=== PATIENT | female | born 1955 | race Caucasian/White ===

== ENCOUNTER 2016-12-14 10:47 | Inpatient (IN) | payer BC, MEDICAID ==
[~2016-12-14] VITALS: Ht 157.5 cm; Wt 46.3 kg
[~2016-12-14 10:47] MED LIST: Acetaminophen PO; HYDR-3326 PO
[2016-12-14] MEDS ORDERED: IV NORMAL SALINE 1000 ML BAG IV ONE (11:00)
[2016-12-14] MEDS ORDERED: METOCLOPRAMIDE HCL 10 MG/2 ML VIAL IV ONE (11:15)
[2016-12-14 11:22] LABS: BASOPHILS # (AUTO) 0.1 K/uL (0.0-8.0); BASOPHILS % (AUTO) 0.9 % (0.0-2.0); EOSINOPHILS % (AUTO) 0.1 % (0.0-7.0); HEMATOCRIT 42.9 % (37-47); LYMPHOCYTES # (AUTO) 0.8 K/UL (0.8-4.8); LYMPHOCYTES % (AUTO) 9.7 % (20.5-51.5); MEAN CORPUSCULAR HEMOGLOBIN 31.6 UUG (27.0-31.0); MEAN CORPUSCULAR HGB CONC 33 g/dL (32.0-37.0); MEAN CORPUSCULAR VOLUME 97.2 FL (81.0-99.0); MONOCYTES # (AUTO) 0.7 K/UL (0.1-1.30); MONOCYTES % (AUTO) 8.6 % (0.0-11.0); NEUTROPHILS # (AUTO) 6.9 K/UL (1.8-8.9); NEUTROPHILS % (AUTO) 80.7 % (38.5-71.5); PLATELET COUNT (AUTO) 240 K/UL (150-450); RED BLOOD CELL COUNT(AUTO) 4.41 MIL/UL (4.2-5.4); WHITE BLOOD COUNT (AUTO) 8.5 K/UL (4.0-11.2)
--- NOTE | 2016-12-14 11:27 | NUR ---
PT IS IN ROOM #2A. DR GALINDO EVALUATED THE PT.
[2016-12-14 11:29] LABS: CREATININE 0.9 mg/dL (0.6-1.3); POTASSIUM 4.5 mmol/L (3.5-5.1)
[2016-12-14] MEDS ORDERED: ONDANSETRON IV *ER 4 MG/2 ML VIAL IV ONE (11:30)
[2016-12-14] MEDS ORDERED: TAMOXIFEN PO (11:31)
[2016-12-14] MEDS ORDERED: ONDANSETRON 4 MG/2 ML VIAL ONE (11:43)
[2016-12-14] MEDS ORDERED: METOCLOPRAMIDE HCL 10 MG/2 ML VIAL ONE (11:43)
[2016-12-14 11:46] LABS: BILIRUBIN,DIRECT 0.1 mg/dL (0.0-0.2); BILIRUBIN,TOTAL 0.4 mg/dL (0.2-1.0)
[2016-12-14] MEDS ORDERED: ONDA8TAB6 PO (12:08)
[2016-12-14] MEDS ORDERED: FAMO-132 PO (12:08)
[2016-12-14] MEDS ORDERED: LORA0.5T PO (12:08)
--- NOTE | 2016-12-14 12:25 | NUR ---
REPORT WAS GIVEN TO LIVESTOCK BUYER. PT WAS TRANSFERED TO ROOM #220.
[2016-12-14] MEDS ORDERED: NEOMY/BACITRAC/POLYMI OINT 28.35 GM TUBE TOP SCH (12:45)
[2016-12-14] MEDS ORDERED: NEOMY/BACITRA/POLYMYXIN B OINT UD PACKET TP ONE (12:53)
[2016-12-14 13:00] VITALS: BP 102/75
--- NOTE | 2016-12-14 13:00 | NUR ---
RECEIVED PATIENT FOR ADMISION
--- NOTE | 2016-12-14 13:15 | NUR ---
RECEIVED PATIENT FROM ED IS AN 61 YEARS OLD FEMALE TO ROOM 220 WITH DX OF DEHYDRATION PLACED INTO BED FIXED AND MADE COMFORTABLE PATIENT IS ALERT AND ORIENTED ASSISTED WITH THE ADMISSION PROCESS ON ROOM AIR WITH NO SHORTNESS OF BREATH AT THIS TIME.PATIENT REQUESTED FOR O2 STATED THAT IT MADE HER FEEL BETTER WHILE SHE WAS IN ED.DENIES PAIN OR DISCOMFORTS AT THIS TIME.PATIENT ORIENTED TO ROOM AND THE FACILITY PROTOCOL.MADE COMFORTABLE WILL CONTINUE TO OBSERVE.
[2016-12-14] MEDS ORDERED: ONDANSETRON 4 MG/2 ML VIAL IV PRN ×2 (15:30)
[2016-12-14] MEDS ORDERED: LORAZEPAM 0.5 MG TABLET PO PRN (15:30)
[2016-12-14] MEDS ORDERED: MORPHINE SULFATE 2 MG/1 ML DISP.SYRIN IV PRN (15:30)
[2016-12-14] MEDS ORDERED: ACETAMINOPHEN 325 MG TABLET PO PRN (15:30)
[2016-12-14] MEDS: IV NS 1000 ML 1,000 ML IV PRN (15:36)
[2016-12-14 15:51] VITALS: BP 103/82
[2016-12-14] MEDS: FAMOTIDINE 20 MG TABLET PO SCH (16:53)
--- NOTE | 2016-12-14 18:00 | NUR ---
REMAIN WITH IV FLUIDS ORDERED SHE STATED THAT SHE ATE A SAND WISH A LITTLE WHILE AGO DENIES PAIN OR DISCOMFORTS AT THIS TIME AND WILL CONTINUE TO OBSERVE.
--- NOTE | 2016-12-14 19:30 | NUR ---
PT RECEIVED IN BED, AWAKE. A/OX4. ABLE TO MAKE NEEDS KNOWN. V/S STABLE. IN NO ACUTE DISTRESS. NO C/O PAIN AT THIS TIME. PT C/O OF DIFFICULTY BREATHING. INCREASED O2 NC TO 3L. PT TOLERATING WELL. NO C/O N/V AT THIS TIME. SAFETY MEASURES IMPLEMENTED. CALL LIGHT WITHIN REACH. WILL CONT TO MONITOR.
[2016-12-14 20:04] VITALS: BP 104/83
[2016-12-14] MEDS: ZOLPIDEM 5 MG TABLET PO PRN (20:31)
[2016-12-14] MEDS ORDERED: ENOXAPARIN SODIUM 40 MG/0.4 ML DISP.SYRIN SQ SCH (21:00)
[2016-12-15] VITALS (13 sets, daily range): BP systolic 103–171; BP diastolic 63–86
[2016-12-15] MEDS: IV NS 1000 ML 1,000 ML IV PRN ×2 (03:13→18:36)
--- NOTE | 2016-12-15 06:40 | NUR ---
END OF SHIFT NOTES. PT SLEPT WELL THROUGHOUT SHIFT. IN STABLE CONDITION. IVF INFUSING. PT VERBALIZES RELIEF OF NAUSEA. ALL NEEDS ATTENDED. SAFETY MAINTAINED. CALL LIGHT WITHIN REACH.
[2016-12-15 06:43] LABS: BASOPHILS % (AUTO) 0.4 % (0.0-2.0); EOSINOPHILS % (AUTO) 0.2 % (0.0-7.0); HEMATOCRIT 36.7 % (37-47); HEMOGLOBIN 11.9 G/DL (12.0-16.0); LYMPHOCYTES # (AUTO) 0.9 K/UL (0.8-4.8); LYMPHOCYTES % (AUTO) 10.4 % (20.5-51.5); MEAN CORPUSCULAR HGB CONC 33 g/dL (32.0-37.0); MEAN CORPUSCULAR VOLUME 98.2 FL (81.0-99.0); MONOCYTES # (AUTO) 0.7 K/UL (0.1-1.30); MONOCYTES % (AUTO) 7.7 % (0.0-11.0); NEUTROPHILS # (AUTO) 7.3 K/UL (1.8-8.9); NEUTROPHILS % (AUTO) 81.3 % (38.5-71.5); PLATELET COUNT (AUTO) 259 K/UL (150-450); RED BLOOD CELL COUNT(AUTO) 3.74 MIL/UL (4.2-5.4); WHITE BLOOD COUNT (AUTO) 8.9 K/UL (4.0-11.2)
[2016-12-15 07:22] LABS: BILIRUBIN,TOTAL 0.3 mg/dL (0.2-1.0); CREATININE 0.7 mg/dL (0.6-1.3); MAGNESIUM 2.1 mg/dL (1.8-2.4); PHOSPHOROUS 2.5 mg/dL (2.5-4.9); POTASSIUM 4.5 mmol/L (3.5-5.1)
[2016-12-15] MEDS: FAMOTIDINE 20 MG TABLET PO SCH ×2 (08:12→17:05)
[2016-12-15] MEDS: TAMOXIFEN CITRATE 10 MG TABLET PO SCH (08:15)
[2016-12-15 08:23] LABS: THYROID STIMULATING HORMONE 2.724 mIU/mL (0.358-3.740)
[2016-12-15] MEDS ORDERED: ONDANSETRON 4 MG/2 ML VIAL IV PRN (09:15)
[2016-12-15] MEDS ORDERED: PROMETHAZINE HCL INJ 12.5 MG in IV DEXTROSE 5% 50 ML IV PRN (09:15)
--- NOTE | 2016-12-15 09:17 | NUR ---
PATIENT IS COMPLAINING THAT SHE IS STILL FEELS NAUSEA DESPITE THE PEPCID AND THE ZOFRAN ORDERED DR CLEO MESSINA NOTIFIED WITH NEW ORDERS AND NOTED.
--- NOTE | 2016-12-15 11:05 | NUR ---
DR CLEO MESSINA IS HERE AND SEEN PATIENT AND SHE IS FEELING BETTER WITH THE NAUSEA AFTER THE PHERNEGAN AND DR CLEO MESSINA CALLED AND SPOKE WITH PATIENTS OWN ONCOLOGIST.
--- NOTE | 2016-12-15 12:20 | NUR ---
ECHO DONE ORDERED BUT PATIENT HAS 35-40% EF AWAITING FOR THE TRACTOR CRANE OPERATOR TO READ THE ECHO
--- NOTE | 2016-12-15 12:40 | NUR ---
DR REID HERE AND STATED THAT PATIENT HAS TO BE MOVED TO RECOVERY AREA DIONICIO.
--- NOTE | 2016-12-15 12:45 | NUR ---
PATIENT ROMED TO THE RECOVERY ROOM BY BED AFTER BEING SEEN BY DR REID PATIENT HAS A CARDIAC TAMPONADE AND NEED THOACENTHESIS DIONICIO.
--- NOTE | 2016-12-15 12:50 | NUR ---
REPORT GIVEN TO MAYCO AT THE RECOVERY ROOM FOR CONTINUING CARE.
[2016-12-15] MEDS ORDERED: MIDAZOLAM HCL 2 MG/2 ML VIAL ONE (13:12)
[2016-12-15] MEDS ORDERED: FENTANYL CITRATE 100 MCG/2 ML AMPUL ONE (13:13)
[2016-12-15] MEDS: ONDANSETRON INJ 8 MG in IV NORMAL SALINE 50 ML IV PRN (17:05)
[2016-12-15] MEDS: MORPHINE SULFATE 2 MG/1 ML DISP.SYRIN IV PRN ×3 (17:17→22:29)
--- NOTE | 2016-12-15 19:30 | NUR ---
Report received; patient sleeping easily arouses to name. No neuro deficits. Denies SOB but c/o pain on deep inspiration. O2 at 2 L NC continuously; sat above 95%. Pericardial drain intact and to bag with serosanguineous fluids. Assessment completed. Addendum: 12/16/16 at 0032 by ELLIE VALIENTE RN Amended: Links added. Addendum: 12/16/16 at 0035 by ELLIE VALIENTE RN Amended: Links added.
--- NOTE | 2016-12-15 22:25 | NUR ---
PM care provided. Patient cooperative. Medicated with Morphine IV for c/o generalized pain and achiness. Pericardial drain noted with few clots. Addendum: 12/16/16 at 0038 by ELLIE VALIENTE RN Amended: Links added.
[2016-12-16] VITALS (23 sets, daily range): BP systolic 110–155; BP diastolic 53–85
--- NOTE | 2016-12-16 02:00 | NUR ---
Pericardial drain irrigated gently with 2 ml NS to patient and 8 ml to bag. Drainage fluids noted to be unix system administrator serosanguineous and with very minimal streaks or blood clots. Patient denies SOB. Addendum: 12/16/16 at 0636 by ELLIE VALIENTE RN Amended: Links added.
--- NOTE | 2016-12-16 04:00 | NUR ---
[place] to [facility] [place] Gait steady. Refusing pain medication, although patient appears to be guarding. Voided clear meka urine. Back to bed without problems. Addendum: 12/16/16 at 0631 by ELLIE VALIENTE RN Amended: Links added.
[2016-12-16] MEDS: IV NS 1000 ML 1,000 ML IV PRN (04:27)
[2016-12-16 05:01] LABS: BASOPHILS # (AUTO) 0.1 K/uL (0.0-8.0); BASOPHILS % (AUTO) 0.5 % (0.0-2.0); EOSINOPHILS % (AUTO) 0.1 % (0.0-7.0); HEMATOCRIT 38.5 % (37-47); HEMOGLOBIN 12.5 G/DL (12.0-16.0); LYMPHOCYTES # (AUTO) 0.7 K/UL (0.8-4.8); LYMPHOCYTES % (AUTO) 6.9 % (20.5-51.5); MEAN CORPUSCULAR HEMOGLOBIN 31.7 UUG (27.0-31.0); MEAN CORPUSCULAR HGB CONC 32 g/dL (32.0-37.0); MEAN CORPUSCULAR VOLUME 97.8 FL (81.0-99.0); MONOCYTES # (AUTO) 0.9 K/UL (0.1-1.30); MONOCYTES % (AUTO) 8.5 % (0.0-11.0); NEUTROPHILS # (AUTO) 8.5 K/UL (1.8-8.9); PLATELET COUNT (AUTO) 245 K/UL (150-450); RED BLOOD CELL COUNT(AUTO) 3.94 MIL/UL (4.2-5.4); WHITE BLOOD COUNT (AUTO) 10.2 K/UL (4.0-11.2)
[2016-12-16 05:19] LABS: CREATININE 0.7 mg/dL (0.6-1.3); MAGNESIUM 1.9 mg/dL (1.8-2.4); PHOSPHOROUS 2.5 mg/dL (2.5-4.9); POTASSIUM 4.1 mmol/L (3.5-5.1)
--- NOTE | 2016-12-16 06:38 | NUR ---
Slept well during the night. Had only one dose of Morphine IV for pain. VS stable.
[2016-12-16] MEDS: FAMOTIDINE 20 MG TABLET PO SCH ×2 (08:52→16:32)
[2016-12-16] MEDS: TAMOXIFEN CITRATE 10 MG TABLET PO SCH (08:53)
[2016-12-16] MEDS: ONDANSETRON INJ 8 MG in IV NORMAL SALINE 50 ML IV PRN ×2 (09:12→16:22)
[2016-12-16] MEDS: MORPHINE SULFATE 2 MG/1 ML DISP.SYRIN IV PRN ×2 (10:41→21:31)
[2016-12-16] MEDS ORDERED: IOHEXOL 300MG/ML 100 ML INFUS..BTL ONE (10:58)
[2016-12-16] MEDS ORDERED: IV NORMAL SALINE 250 ML IV ONE (10:58)
--- NOTE | 2016-12-16 11:00 | NUR ---
Brought the pt down with radiology for CT abd/pelvis and chest. Pt stable and nad noted upon leaving the unit.
[2016-12-16 11:10] LABS: CANCER ANTIGEN 15-3 53.3 U/mL (0.0-25.0)
--- NOTE | 2016-12-16 11:30 | NUR ---
Brought the pt back to the unit with radiology from CT. Pt stable and nad noted upon returning to the unit.
--- NOTE | 2016-12-16 13:45 | NUR ---
Dr. Ho here to see pt. Full report given. New orders received.
--- NOTE | 2016-12-16 20:00 | NUR ---
Up to [facility] with assist. Patient requesting for something for constipation. Claims she hasn't had a BM for 3 days. Voided meka urine. PM care rendered. Denies SOB, but still with mild chest discomfort. ST on the monitor. Addendum: 12/16/16 at 2243 by ELLIE VALIENTE RN Amended: Links added.
--- NOTE | 2016-12-16 20:20 | NUR ---
Dr. Buchanan visited. Orders received. Addendum: 12/16/16 at 2244 by ELLIE VALIENTE RN Amended: Links added.
[2016-12-16] MEDS ORDERED: BISACODYL 5 MG TABLET.DR PO STA (20:24)
[2016-12-16] MEDS: DOCUSATE SODIUM 100 MG CAPSULE PO SCH (20:34)
--- NOTE | 2016-12-16 20:35 | NUR ---
Took po meds without problems. Addendum: 12/16/16 at 2246 by ELLIE VALIENTE RN Amended: Links added. Addendum: 12/16/16 at 2255 by ELLIE VALIENTE RN Amended: Links added.
--- NOTE | 2016-12-16 21:31 | NUR ---
Medicated with Morphine IV for c/o pain. Patient able to discuss plan of care when asked. Pericardial drain irrigated gently. With small amounts of serosanguineous drainage. Repositioned for comfort. Addendum: 12/16/16 at 2251 by ELLIE VALIENTE RN Amended: Links added.
[2016-12-17] VITALS (23 sets, daily range): BP systolic 101–145; BP diastolic 55–81
--- NOTE | 2016-12-17 02:20 | NUR ---
Awake, nauseated. Zofran IVPB given. With mild pain but patient refused pain medication. Advised appropriately. Addendum: 12/17/16 at 0245 by ELLIE VALIENTE RN Amended: Links added. Addendum: 12/17/16 at 0245 by ELLIE VALIENTE RN Amended: Links added.
[2016-12-17] MEDS: ONDANSETRON INJ 8 MG in IV NORMAL SALINE 50 ML IV PRN ×3 (02:24→21:44)
[2016-12-17 05:15] LABS: BASOPHILS # (AUTO) 0.1 K/uL (0.0-8.0); BASOPHILS % (AUTO) 1.4 % (0.0-2.0); EOSINOPHILS % (AUTO) 0.4 % (0.0-7.0); HEMATOCRIT 38.2 % (37-47); HEMOGLOBIN 12.2 G/DL (12.0-16.0); LYMPHOCYTES # (AUTO) 0.8 K/UL (0.8-4.8); LYMPHOCYTES % (AUTO) 8.3 % (20.5-51.5); MEAN CORPUSCULAR HEMOGLOBIN 31.2 UUG (27.0-31.0); MEAN CORPUSCULAR HGB CONC 32 g/dL (32.0-37.0); MEAN CORPUSCULAR VOLUME 97.4 FL (81.0-99.0); MONOCYTES # (AUTO) 1.1 K/UL (0.1-1.30); MONOCYTES % (AUTO) 10.8 % (0.0-11.0); NEUTROPHILS # (AUTO) 8.1 K/UL (1.8-8.9); NEUTROPHILS % (AUTO) 79.1 % (38.5-71.5); PLATELET COUNT (AUTO) 225 K/UL (150-450); RED BLOOD CELL COUNT(AUTO) 3.92 MIL/UL (4.2-5.4); WHITE BLOOD COUNT (AUTO) 10.1 K/UL (4.0-11.2)
[2016-12-17 05:25] LABS: BILIRUBIN,TOTAL 0.4 mg/dL (0.2-1.0); CREATININE 0.6 mg/dL (0.6-1.3); PHOSPHOROUS 1.6 mg/dL (2.5-4.9); TOTAL PROTEIN, SERUM 4.8 g/dL (6.4-8.2)
--- NOTE | 2016-12-17 06:20 | NUR ---
Up to [facility] by herself; voided meka urine. Back to bed; gait steady. Still with very mild chest discomfort during deep inspiration. BP stable. Addendum: 12/17/16 at 0722 by ELLIE VALIENTE RN Amended: Links added.
[2016-12-17] MEDS ORDERED: MAGNESIUM SULFATE/D5W 100 ML IV SCH (07:15)
[2016-12-17] MEDS ORDERED: NEUTRA PHOS PACKET PO ONE ×2 (07:15→15:30)
[2016-12-17] MEDS: FAMOTIDINE 20 MG TABLET PO SCH ×2 (08:06→17:47)
[2016-12-17] MEDS: TAMOXIFEN CITRATE 10 MG TABLET PO SCH (08:17)
--- NOTE | 2016-12-17 12:54 | NUR ---
Dr. Ho in the unit to examine patient; full report given.
[2016-12-17] MEDS ORDERED: FUROSEMIDE 20 MG/2 ML VIAL IV ONE (13:00)
--- NOTE | 2016-12-17 13:41 | NUR ---
Report given to jovanni Padilla.
--- NOTE | 2016-12-17 20:00 | NUR ---
pt able to verbalized plan of care and treatment for am Addendum: 12/18/16 at 0032 by ALEN CASEY RN Amended: Links added. Addendum: 12/18/16 at 0032 by ALEN CASEY RN Amended: Links added.
--- NOTE | 2016-12-17 20:30 | NUR ---
good skin turgor .adequate intake on regular diet . Addendum: 12/18/16 at 0041 by ALEN CASEY RN Amended: Links added.
--- NOTE | 2016-12-17 20:30 | NUR ---
no new skin breakdown noted .patient able to reposition self independently while in bed and able to use the bedside commode . Addendum: 12/18/16 at 0035 by ALEN CASEY RN Amended: Links added.
[2016-12-17] MEDS: DOCUSATE SODIUM 100 MG CAPSULE PO SCH ×2 (21:00→21:26)
[2016-12-17] MEDS: ENOXAPARIN SODIUM 30 MG/0.3 ML DISP.SYRIN SUBCUT SCH (21:27)
--- NOTE | 2016-12-17 21:32 | NUR ---
opened 2 softgel patient refused medication medicated wasted with another RN.she refers prune juice in the morning . Addendum: 12/17/16 at 2139 by ALEN CASEY RN opened 2 softgel Colace patient refused medication .medication wasted and witness with another RN.she prefers prune juice in the morning.
--- NOTE | 2016-12-17 22:00 | NUR ---
vital signs with in normal limits .tolerating oxygen at 2 liter per/min .no respiratory distress no SOB . Addendum: 12/18/16 at 0038 by ALEN CASEY RN Amended: Links added.
[2016-12-17] MEDS: ZOLPIDEM 5 MG TABLET PO PRN (22:11)
[2016-12-18] VITALS (14 sets, daily range): BP systolic 104–145; BP diastolic 58–86
[2016-12-18 05:04] LABS: BASOPHILS % (AUTO) 0.3 % (0.0-2.0); EOSINOPHILS # (AUTO) 0.1 K/uL (0.0-0.7); HEMATOCRIT 34.9 % (37-47); HEMOGLOBIN 11.3 G/DL (12.0-16.0); LYMPHOCYTES # (AUTO) 0.6 K/UL (0.8-4.8); LYMPHOCYTES % (AUTO) 7.1 % (20.5-51.5); MEAN CORPUSCULAR HEMOGLOBIN 31.5 UUG (27.0-31.0); MEAN CORPUSCULAR HGB CONC 32 g/dL (32.0-37.0); MEAN CORPUSCULAR VOLUME 97.2 FL (81.0-99.0); MONOCYTES # (AUTO) 0.8 K/UL (0.1-1.30); MONOCYTES % (AUTO) 9.5 % (0.0-11.0); NEUTROPHILS # (AUTO) 7.3 K/UL (1.8-8.9); NEUTROPHILS % (AUTO) 82.1 % (38.5-71.5); PLATELET COUNT (AUTO) 193 K/UL (150-450); RED BLOOD CELL COUNT(AUTO) 3.59 MIL/UL (4.2-5.4); WHITE BLOOD COUNT (AUTO) 8.8 K/UL (4.0-11.2)
[2016-12-18 05:20] LABS: BILIRUBIN,TOTAL 0.3 mg/dL (0.2-1.0); CREATININE 0.6 mg/dL (0.6-1.3); MAGNESIUM 1.9 mg/dL (1.8-2.4); PHOSPHOROUS 2.2 mg/dL (2.5-4.9); POTASSIUM 3.6 mmol/L (3.5-5.1); TOTAL PROTEIN, SERUM 4.7 g/dL (6.4-8.2)
[2016-12-18] MEDS: ONDANSETRON INJ 8 MG in IV NORMAL SALINE 50 ML IV PRN (07:54)
[2016-12-18] MEDS: FAMOTIDINE 20 MG TABLET PO SCH ×2 (08:04→17:09)
[2016-12-18] MEDS: TAMOXIFEN CITRATE 10 MG TABLET PO SCH (08:08)
--- NOTE | 2016-12-18 09:25 | NUR ---
Dr. mccartney here to assess pt report given on patients condition VS, Output from drainage. called lab about cytology report, pathologist will read and will report back to Dr Mccartney
[2016-12-18] MEDS ORDERED: POTASSIUM PHOSPHATE MM 7.5 MMOL in IV DEXTROSE 5% 100 ML IV ONE (11:30)
[2016-12-18 12:36] LABS: *BLOOD, URINE NEGATIVE (NEGATIVE); *CLARITY,URINE SLIGHTLY CLOUDY (CLEAR); *COLOR,URINE YELLOW (YELLOW); *KETONES,URINE NEGATIVE (NEGATIVE); *PROTEIN,URINE 1+ (NEGATIVE); *UROBILINOGEN,URINE >=8.0 E.U./dl (NORMAL); LEUKOCYTE ESTERASE ,URINE NEGATIVE (NEGATIVE); NITRITE, URINE NEGATIVE (NEGATIVE); PH,URINE 7.5 (5.0-8.0); UGLUCOSE NEGATIVE (NEGATIVE)
[2016-12-18 13:01] LABS: *BILIRUBIN,URIN 1+ (NEGATIVE)
[2016-12-18 13:03] LABS: BACTERIA,URINE FEW /HPF (NONE SEEN); RBC,URINE 0-3 /HPF (0-3); SQUAMOUS EPITHELIAL CELL,UR MODERATE /HPF (NONE SEEN)
[2016-12-18 13:04] LABS: MUCUS,URINE FEW /LPF (0-FEW); TRIPLE PHOSPHATE CRYSTAL,UR FEW /HPF (NONE SEEN)
--- NOTE | 2016-12-18 15:54 | NUR ---
pt admitted at 1500. pt assessed. pt vitals checked. blood pressure on the low side with o2 sat at 99%. received report from ccu nurse. pericardial drain intact. will cotninue to monitor.
--- NOTE | 2016-12-18 16:24 | NUR ---
pericardial drain done at 1600. 10cc total. 2 cc push towards the patient. 8 cc pushed
--- NOTE | 2016-12-18 19:05 | NUR ---
pt stable throughout the day. vitals stable. pericardial drain intact. no signs of acute distress. pt complains of neck pain. pt wanted iv morphine. iv morphine not given because iv site inflitrated. pt refused to have iv inserted on left side. will endorse to teamsite developer nurse.
--- NOTE | 2016-12-18 20:12 | NUR ---
Received patient in bed awake & alert no SOB denies chest pain. Pericardial drain intact. Vital signs are WNL, sinus rhythm on the monitor. Research Intern Dr. Ho in room assessing this patient.
[2016-12-18] MEDS: DOCUSATE SODIUM 100 MG CAPSULE PO SCH (21:12)
[2016-12-18] MEDS: MORPHINE SULFATE 2 MG/1 ML DISP.SYRIN IV PRN (21:15)
[2016-12-18] MEDS: ENOXAPARIN SODIUM 30 MG/0.3 ML DISP.SYRIN SUBCUT SCH (21:16)
[2016-12-18] MEDS: ZOLPIDEM 5 MG TABLET PO PRN (21:25)
--- NOTE | 2016-12-18 22:00 | NUR ---
Per report, right upper arm heplock was infiltrated. Checked for patency but IV site intact & patent, patient denies pain on the site. Kept IV site for emergency drug purposes, & covered/secured it with clean kerlix. Applied new IV line to her right hand w/ [id number]. Medicated w/ Morphine 1mg IVP per patient request. Will continue to monitor.
[2016-12-19 05:45] VITALS: BP 128/71
--- NOTE | 2016-12-19 06:02 | NUR ---
12-hour total pericardial drain is 23ml. No acute resp distress. Vital signs are stable.
[2016-12-19 06:55] LABS: BASOPHILS % (AUTO) 0.5 % (0.0-2.0); EOSINOPHILS # (AUTO) 0.1 K/uL (0.0-0.7); EOSINOPHILS % (AUTO) 1.9 % (0.0-7.0); HEMATOCRIT 34.4 % (37-47); HEMOGLOBIN 11.5 G/DL (12.0-16.0); LYMPHOCYTES # (AUTO) 0.9 K/UL (0.8-4.8); LYMPHOCYTES % (AUTO) 12.3 % (20.5-51.5); MEAN CORPUSCULAR HEMOGLOBIN 32.9 UUG (27.0-31.0); MEAN CORPUSCULAR HGB CONC 33 g/dL (32.0-37.0); MEAN CORPUSCULAR VOLUME 98.8 FL (81.0-99.0); MONOCYTES # (AUTO) 0.6 K/UL (0.1-1.30); MONOCYTES % (AUTO) 8.9 % (0.0-11.0); NEUTROPHILS # (AUTO) 5.4 K/UL (1.8-8.9); NEUTROPHILS % (AUTO) 76.4 % (38.5-71.5); PLATELET COUNT (AUTO) 199 K/UL (150-450); RED BLOOD CELL COUNT(AUTO) 3.48 MIL/UL (4.2-5.4)
[2016-12-19 07:02] LABS: CREATININE 0.5 mg/dL (0.6-1.3); MAGNESIUM 1.8 mg/dL (1.8-2.4); PHOSPHOROUS 2.8 mg/dL (2.5-4.9); POTASSIUM 3.9 mmol/L (3.5-5.1)
[2016-12-19] MEDS: TAMOXIFEN CITRATE 10 MG TABLET PO SCH (09:36)
[2016-12-19] MEDS: FAMOTIDINE 20 MG TABLET PO SCH ×2 (09:37→17:29)
[2016-12-19] MEDS: ONDANSETRON INJ 8 MG in IV NORMAL SALINE 50 ML IV PRN ×2 (09:38→22:13)
--- NOTE | 2016-12-19 09:51 | NUR ---
PERICARDIAL DRAIN FLUSHED WITH NS 2ML TOWARDS HEART AND 8ML TOWARDS BAG, PT STATED NAUSEA, ZOFRAN GIVEN, ALL SAFETY AND COMFORT MEASURES ATTENDED TO CALL LIGHT IN REACH, WILL CONTINUE TO MONITOR
[2016-12-19 10:55] VITALS: BP 127/68
--- NOTE | 2016-12-19 14:23 | NUR ---
DR MICHEL IN TO SEE PT
[2016-12-19 15:08] VITALS: BP 104/59
[2016-12-19] MEDS: DOCUSATE SODIUM 100 MG CAPSULE PO SCH (19:54)
[2016-12-19] MEDS: ENOXAPARIN SODIUM 30 MG/0.3 ML DISP.SYRIN SUBCUT SCH (19:55)
[2016-12-19 20:00] VITALS: BP 130/74
[2016-12-19] MEDS: ZOLPIDEM 5 MG TABLET PO PRN (20:06)
[2016-12-19] MEDS: BISACODYL 5 MG TABLET.DR PO PRN (21:13)
--- NOTE | 2016-12-19 22:30 | NUR ---
Nauseated, Zofran 8 mg IVPB adm. Pericardial drain bag in place w/ scant amount serous drainage. Patient denies pain at this time. Sinus rhythm on the monitor.
[2016-12-20 00:38] VITALS: BP 125/62
[2016-12-20 04:00] VITALS: BP 117/63
--- NOTE | 2016-12-20 07:15 | NUR ---
No further change noted. Patient fairly rested, assisted w/ all needs. Tele sinus rhythm w/ PACs. For cardiac procedure on Thursday.
--- NOTE | 2016-12-20 08:30 | NUR ---
AWAKE ALERT COOPERATE WELL NO SOB OR PAIN EAT BREAKFAST MOD AMT ON FALL PRECAUTION CALL CAMERON IN REACH
[2016-12-20] MEDS: FAMOTIDINE 20 MG TABLET PO SCH ×2 (08:38→16:28)
[2016-12-20] MEDS: TAMOXIFEN CITRATE 10 MG TABLET PO SCH (08:38)
[2016-12-20] MEDS: ONDANSETRON INJ 8 MG in IV NORMAL SALINE 50 ML IV PRN ×2 (08:40→16:28)
[2016-12-20 11:20] VITALS: BP 115/65
[2016-12-20 15:25] VITALS: BP 125/75
--- NOTE | 2016-12-20 17:00 | NUR ---
RESTING QUIET MOST OF THE TIME STABLE HEMODYNAMIC PAIN AND NAUSEA UNDER CONTROL WITH MEDICATION SAFETY MEASURE PROVIDED CALL LIGHT WITHIN REACH
[2016-12-20 20:05] VITALS: BP 133/71
[2016-12-20] MEDS: DOCUSATE SODIUM 100 MG CAPSULE PO SCH (21:23)
[2016-12-20] MEDS: ENOXAPARIN SODIUM 30 MG/0.3 ML DISP.SYRIN SUBCUT SCH (21:24)
[2016-12-20] MEDS: ZOLPIDEM 5 MG TABLET PO PRN (22:14)
[2016-12-21 00:28] VITALS: BP 126/70
[2016-12-21 04:00] VITALS: BP 134/70
--- NOTE | 2016-12-21 06:54 | NUR ---
No significant change, w/ zero output from pericardial drain bag, vital signs WNL. NSR on the monitor.
[2016-12-21 07:04] LABS: BASOPHILS % (AUTO) 0.6 % (0.0-2.0); EOSINOPHILS # (AUTO) 0.1 K/uL (0.0-0.7); EOSINOPHILS % (AUTO) 2.1 % (0.0-7.0); HEMATOCRIT 33.4 % (37-47); LYMPHOCYTES # (AUTO) 0.9 K/UL (0.8-4.8); LYMPHOCYTES % (AUTO) 14.7 % (20.5-51.5); MEAN CORPUSCULAR HEMOGLOBIN 32.3 UUG (27.0-31.0); MEAN CORPUSCULAR HGB CONC 33 g/dL (32.0-37.0); MEAN CORPUSCULAR VOLUME 98.1 FL (81.0-99.0); MONOCYTES # (AUTO) 0.6 K/UL (0.1-1.30); MONOCYTES % (AUTO) 10.7 % (0.0-11.0); NEUTROPHILS # (AUTO) 4.4 K/UL (1.8-8.9); NEUTROPHILS % (AUTO) 71.9 % (38.5-71.5); PLATELET COUNT (AUTO) 221 K/UL (150-450); RED BLOOD CELL COUNT(AUTO) 3.41 MIL/UL (4.2-5.4)
--- NOTE | 2016-12-21 08:00 | NUR ---
AWAKE ALERT COOPERATE WELL NO PAIN OR SOB NO N/V AT THIS TIME LAURIE BREAKFAST MOD AMT PERICARDIAL CATHETER INPLACE AND IRRIGATION Q 8H ORDER LAURIE WELL ON FALL PRECAUTION CALL LIGHT IN REACH
[2016-12-21] MEDS: FAMOTIDINE 20 MG TABLET PO SCH ×2 (08:23→16:49)
[2016-12-21] MEDS: TAMOXIFEN CITRATE 10 MG TABLET PO SCH (08:24)
[2016-12-21 09:12] LABS: BILIRUBIN,TOTAL 0.3 mg/dL (0.2-1.0); CREATININE 0.6 mg/dL (0.6-1.3); MAGNESIUM 1.7 mg/dL (1.8-2.4); POTASSIUM 4.1 mmol/L (3.5-5.1); TOTAL PROTEIN, SERUM 5.2 g/dL (6.4-8.2)
[2016-12-21] MEDS ORDERED: MAGNESIUM SULFATE/D5W 100 ML IV SCH (10:00)
[2016-12-21 11:45] VITALS: BP 131/65
[2016-12-21 15:16] VITALS: BP 121/64
--- NOTE | 2016-12-21 16:00 | NUR ---
CONSENT FOR SURGERY SIGNS BY PATIENT FOR TOMORROW
--- NOTE | 2016-12-21 17:15 | NUR ---
STABLE CONDITION NO N/V OR SOB OR PAIN PERICARDIAL CATHETER PATENT AND IRRIGATION WITH NS ORDER 0 ML OUT NO RESPIRATORY DISTRESS SAFETY MEASURE PROVIDED CALL LIGHT IN REACH
[2016-12-21 20:00] VITALS: BP 142/74
[2016-12-21] MEDS: ENOXAPARIN SODIUM 30 MG/0.3 ML DISP.SYRIN SUBCUT SCH (20:40)
[2016-12-21] MEDS: DOCUSATE SODIUM 100 MG CAPSULE PO SCH (20:42)
[2016-12-21] MEDS ORDERED: ONDANSETRON 4 MG/2 ML VIAL ONE (21:59)
[2016-12-21] MEDS: ONDANSETRON INJ 8 MG in IV NORMAL SALINE 50 ML IV PRN (22:06)
[2016-12-21] MEDS: ZOLPIDEM 5 MG TABLET PO PRN (22:15)
[2016-12-22] VITALS (40 sets, daily range): BP systolic 66–135; BP diastolic 49–80
[2016-12-22] MEDS: ONDANSETRON INJ 8 MG in IV NORMAL SALINE 50 ML IV PRN (05:30)
[2016-12-22] MEDS ORDERED: ONDANSETRON 4 MG/2 ML VIAL ONE (05:31)
[2016-12-22 05:35] LABS: BASOPHILS % (AUTO) 0.5 % (0.0-2.0); EOSINOPHILS # (AUTO) 0.1 K/uL (0.0-0.7); EOSINOPHILS % (AUTO) 1.5 % (0.0-7.0); HEMATOCRIT 33.9 % (37-47); HEMOGLOBIN 11.1 G/DL (12.0-16.0); LYMPHOCYTES # (AUTO) 1.1 K/UL (0.8-4.8); LYMPHOCYTES % (AUTO) 15.4 % (20.5-51.5); MEAN CORPUSCULAR HEMOGLOBIN 31.7 UUG (27.0-31.0); MEAN CORPUSCULAR HGB CONC 33 g/dL (32.0-37.0); MEAN CORPUSCULAR VOLUME 97.1 FL (81.0-99.0); MONOCYTES # (AUTO) 0.6 K/UL (0.1-1.30); MONOCYTES % (AUTO) 7.7 % (0.0-11.0); NEUTROPHILS # (AUTO) 5.6 K/UL (1.8-8.9); NEUTROPHILS % (AUTO) 74.9 % (38.5-71.5); PLATELET COUNT (AUTO) 243 K/UL (150-450); RED BLOOD CELL COUNT(AUTO) 3.49 MIL/UL (4.2-5.4); WHITE BLOOD COUNT (AUTO) 7.4 K/UL (4.0-11.2)
[2016-12-22 06:10] LABS: CREATININE 0.6 mg/dL (0.6-1.3); MAGNESIUM 1.7 mg/dL (1.8-2.4); PHOSPHOROUS 4.6 mg/dL (2.5-4.9); POTASSIUM 4.2 mmol/L (3.5-5.1)
--- NOTE | 2016-12-22 06:48 | NUR ---
Pre-op checklist done. Pre-op routine care rendered. Pericardial drainage checked and measured with 8cc output. Patient complained of Nausea, Zofran 8mg IV given. Maintained on NPO.
--- NOTE | 2016-12-22 07:05 | NUR ---
Pt report received at bedside. Pt escorted to OR for for procedure. No apparent distress noted at this time.
[2016-12-22] MEDS ORDERED: HEPARIN/NS 500 ML ONE ×2 (07:07→08:16)
[2016-12-22] MEDS ORDERED: FENTANYL CITRATE 100 MCG/2 ML AMPUL ONE (08:34)
[2016-12-22] MEDS ORDERED: MIDAZOLAM HCL 2 MG/2 ML VIAL ONE (08:35)
[2016-12-22] MEDS ORDERED: SUCCINYLCHOLINE CHLORIDE 200 MG/10 ML VIAL ONE (08:35)
[2016-12-22] MEDS ORDERED: ROCURONIUM BROMIDE 50 MG/5 ML VIAL ONE ×2 (08:42→11:05)
[2016-12-22] MEDS: TAMOXIFEN CITRATE 10 MG TABLET PO SCH (09:00)
[2016-12-22] MEDS ORDERED: ALBUMIN HUMAN 5% 500 ML ONE (09:34)
[2016-12-22] MEDS ORDERED: PROPOFOL 1,000 MG/100 ML BOTTLE ONE (10:00)
[2016-12-22] MEDS ORDERED: HEMOSTATIC MATRIX 5 ML SYR MC ONE (10:03)
--- NOTE | 2016-12-22 10:40 | NUR ---
PT WAS BROUGHT OUT FROM OR INTUBATED AND WAS PLACE ON VENT AT THIS TIME. MD GAVE VERBAL SETTING ORDERS. AC12, VT450, PEEP +7, FIO2 100%. PT HAS 7.5 ETTUBE, 22CM AND WAS SECURED BY ANCHOR FAST. PT HME WAS PLACE AND SUCTION CATH. PT AT THIS TIME IS SEDATED TOLERATING VENT WELL NO DISTRESS NOTED. PT HAS CHEST TUBE IN PLACE AND SECURED. PT ABG WAS DONE. PT TOLERATING VENT, VENT ALARMS ON AND AUDIBLE. WILL CONTINUE TO MONITOR PT. AMBU BAG AT BED SIDE.
[2016-12-22] MEDS ORDERED: CEFAZOLIN 1 G VIAL MC ONE (10:45)
[2016-12-22] MEDS ORDERED: SEVOFLURANE 250 ML BOTTLE IH ONE (10:45)
[2016-12-22] MEDS ORDERED: IV NORMAL SALINE 1000 ML BAG IV ONE (10:45)
[2016-12-22] MEDS ORDERED: IV LACTATED RINGERS SOLUTION 1,000 ML BAG IV ONE (10:45)
[2016-12-22] MEDS ORDERED: PHENYLEPHRINE 10 MG/1 ML VIAL MC ONE (10:45)
[2016-12-22 11:10] LABS: ABG BASE EXCESS -0.6 mmol/L; ABG HCO3 26.5 mmol/L; ABG PCO2 55.3 mmHg (35.0-45.0); ABG PH 7.298 (7.350-7.450); ABG SITE RIGHT RADIAL; ABG TOTAL HEMOGLOBIN 10.7 G/dL (12.0-16.0); COHb 0.4 % (0.5-1.5); MetHb 0.2 % (0.0-1.5); O2Hb 98.9 % (94.0-97.0); VENT MODE VENT - A/C; VT, ABG 450 mL
[2016-12-22 11:11] LABS: BASOPHILS % (AUTO) 0.2 % (0.0-2.0); EOSINOPHILS # (AUTO) 0.1 K/uL (0.0-0.7); EOSINOPHILS % (AUTO) 0.6 % (0.0-7.0); HEMATOCRIT 29.9 % (37-47); HEMOGLOBIN 9.9 G/DL (12.0-16.0); LYMPHOCYTES # (AUTO) 1.2 K/UL (0.8-4.8); LYMPHOCYTES % (AUTO) 7.3 % (20.5-51.5); MEAN CORPUSCULAR HEMOGLOBIN 30.2 UUG (27.0-31.0); MEAN CORPUSCULAR HGB CONC 33 g/dL (32.0-37.0); MEAN CORPUSCULAR VOLUME 91.3 FL (81.0-99.0); MONOCYTES # (AUTO) 0.7 K/UL (0.1-1.30); MONOCYTES % (AUTO) 4.2 % (0.0-11.0); NEUTROPHILS # (AUTO) 14.4 K/UL (1.8-8.9); NEUTROPHILS % (AUTO) 87.7 % (38.5-71.5); PLATELET COUNT (AUTO) 180 K/UL (150-450); RED BLOOD CELL COUNT(AUTO) 3.27 MIL/UL (4.2-5.4); WHITE BLOOD COUNT (AUTO) 16.4 K/UL (4.0-11.2)
[2016-12-22 11:12] LABS: CREATININE 0.6 mg/dL (0.6-1.3); POTASSIUM 3.7 mmol/L (3.5-5.1)
--- NOTE | 2016-12-22 11:15 | NUR ---
PT ABG WAS DONE AND DUE TO RESULTS PER MD RATE WAS PLACE AT 16. PT TOLERATING WELL NO DISTRESS NOTED. WILL CONTINUE TO MONITOR PT.
[2016-12-22] MEDS ORDERED: HYDROMORPHONE 2 MG/1 ML DISP.SYRIN ONE (12:30)
[2016-12-22] MEDS ORDERED: MORPHINE SULFATE 4 MG/1 ML DISP.SYRIN IV PRN ×4 (13:00→14:00)
[2016-12-22] MEDS ORDERED: MORPHINE SULFATE 2 MG/1 ML DISP.SYRIN IV PRN ×3 (13:00→14:00)
--- NOTE | 2016-12-22 14:00 | NUR ---
PT AT THIS TIME WAS TRANSFER TO CCU-5 WITHOUT INCIDENT. PT FIO2 WAS ALSO TITRATED DOWN TO 90% WILL CONTINUE TO MONITOR PT THROUGHOUT SHIFT. PT CARE WAS TRANSFER TO RT GURWINDER.
--- NOTE | 2016-12-22 14:45 | NUR ---
received patient from pacu responsive by opening both eyes. patient intubated connected to ventilator. chest tube intact with dressing with blood in dressing.sanchez intact with yellow urine.neosynephrine drip and profofol drip infusing .sequental compressor in the left leg only as bp cuff in right leg.a-line in the left femoral artery.1530 fio2 decreased to 60 %.
[2016-12-22] MEDS: PHENYLEPHRINE IV 40 MG in IV DEXTROSE 5% 250 ML IV PRN ×2 (14:48→21:40)
[2016-12-22] MEDS: IV D5 1/2 NS 1000 ML 1,000 ML IV PRN (15:12)
--- NOTE | 2016-12-22 16:30 | NUR ---
LATE ENTRY - ADDENDUM DRSSING CHANGED WITH INCISION AND SUTURES ACROSS THE CHEST AND CHEST TUBE INTACT . ZEROFORM APPLIED AND NO BLEEDING NOTED SO FAR.
--- NOTE | 2016-12-22 17:30 | NUR ---
SBAR DONE AND REPORT GIVEN TO RITA Lopes
--- NOTE | 2016-12-22 17:35 | NUR ---
Report received. Patient with orall ETT to mechanical ventilator with settings: AC=16, JD=807 ml, FIO2=60% and PEEP=7 cm. Sat 96-100%. Sedated; on continuous Propofol drip at 20 mcg/kg/min. On Neosynephrine drip for BP support. Refer to IV spread sheet for rates and dosages. Opens eyes to name and able to follow simple commands. With facial grimacing to stimulation. L Chest tube to water sealed suction; with minimal drainage. Breanna to L femoral with good pressure waveform. Assessment completed. Addendum: 12/22/16 at 2331 by ELLIE VALIENTE RN Amended: Links added.
[2016-12-22 17:42] LABS: HEMATOCRIT 35.5 % (37-47); HEMOGLOBIN 11.7 G/DL (12.0-16.0)
[2016-12-22] MEDS: MAGNESIUM SULFATE/D5W 100 ML IV SCH ×2 (17:46→18:52)
[2016-12-22 17:48] LABS: CREATININE 0.6 mg/dL (0.6-1.3); POTASSIUM 4.7 mmol/L (3.5-5.1)
[2016-12-22] MEDS: PROPOFOL 100 ML IV PRN ×2 (18:04→22:07)
--- NOTE | 2016-12-22 18:15 | NUR ---
Call placed to Dr. Cunha re: Daphne; Dr. Lorenz vocational aide.
--- NOTE | 2016-12-22 18:20 | NUR ---
Spoke with Dr. Lorenz re: Lovenox dose at 2100. Ordered NO Lovenox dose for tonight and follow up with MD tomorrow. Pharmacy informed.
--- NOTE | 2016-12-22 19:30 | NUR ---
RT at bedside. Suctioned for thick bloody secretions from ETT. Patient with fearful look in her eyes. Agitated, grimacing during suctioning and oral care. Sat 87-89%. Placed on YMB3=279% for 3 min. Patient medicated with Morphine IV and reassured appropriately. SBPs in the 80's. Neosynephrine drip titrated. Monitored closely. Addendum: 12/22/16 at 2337 by ELLIE VALIENTE RN Amended: Links added.
[2016-12-22] MEDS: MORPHINE SULFATE 4 MG/1 ML DISP.SYRIN IV PRN (19:35)
--- NOTE | 2016-12-22 20:05 | NUR ---
Morphine IV effective. Addendum: 12/22/16 at 2338 by ELLIE VALIENTE RN Amended: Links added.
--- NOTE | 2016-12-22 20:13 | NUR ---
Pt received on [employer]ys Flannery settings AC 16, VT 450, PEEP +7 and FIO2-60%. No resp. distress noted at this time. 7.5 ETT is at approx. 22 cm at the lip. No resp. distress noted at this time. Pt to be monitored throughout the shift and PRN SX. Flannery alarm parameters have been checked and remain audible.
[2016-12-22] MEDS: FAMOTIDINE. 20 MG/2 ML VIAL IV SCH (20:53)
[2016-12-22] MEDS: DOCUSATE SODIUM 100 MG CAPSULE PO SCH (20:53)
[2016-12-23] VITALS (86 sets, daily range): BP systolic 80–119; BP diastolic 36–89
[2016-12-23] MEDS: IV D5 1/2 NS 1000 ML 1,000 ML IV PRN ×2 (00:16→20:36)
--- NOTE | 2016-12-23 00:30 | NUR ---
Am care rendered. Patient tolerated turning and repositioning. Gets mildly agitated with suctioning and oral care. Advised. Addendum: 12/23/16 at 0339 by ELLIE VALIENTE RN Amended: Links added.
[2016-12-23] MEDS: PHENYLEPHRINE IV 40 MG in IV DEXTROSE 5% 250 ML IV PRN ×3 (02:10→11:19)
[2016-12-23] MEDS: MORPHINE SULFATE 4 MG/1 ML DISP.SYRIN IV PRN ×2 (04:55→09:06)
--- NOTE | 2016-12-23 04:55 | NUR ---
Patient grimacing. Follows simple commands. PCXR done. Medicated with Morphine IV for generalized discomfort.
[2016-12-23 05:18] LABS: BASOPHILS % (AUTO) 0.4 % (0.0-2.0); EOSINOPHILS % (AUTO) 0.1 % (0.0-7.0); HEMATOCRIT 35.5 % (37-47); HEMOGLOBIN 11.8 G/DL (12.0-16.0); LYMPHOCYTES # (AUTO) 1.1 K/UL (0.8-4.8); LYMPHOCYTES % (AUTO) 9.6 % (20.5-51.5); MEAN CORPUSCULAR HEMOGLOBIN 29.9 UUG (27.0-31.0); MEAN CORPUSCULAR HGB CONC 33 g/dL (32.0-37.0); MEAN CORPUSCULAR VOLUME 89.6 FL (81.0-99.0); MONOCYTES # (AUTO) 1.2 K/UL (0.1-1.30); MONOCYTES % (AUTO) 10.7 % (0.0-11.0); NEUTROPHILS # (AUTO) 8.9 K/UL (1.8-8.9); NEUTROPHILS % (AUTO) 79.2 % (38.5-71.5); PLATELET COUNT (AUTO) 208 K/UL (150-450); RED BLOOD CELL COUNT(AUTO) 3.96 MIL/UL (4.2-5.4); WHITE BLOOD COUNT (AUTO) 11.3 K/UL (4.0-11.2)
[2016-12-23 05:24] LABS: CREATININE 0.5 mg/dL (0.6-1.3)
--- NOTE | 2016-12-23 06:00 | NUR ---
Visitor here; claims he's the and/or close friend. Asking lots of questions. Advised to talk to patient's sister. Morphine effective. Patient mildly sedated. Able to open eyes to name calls and follows commands. remains on Neosynephrine drip at 140 mcg/min.
--- NOTE | 2016-12-23 07:10 | NUR ---
report received from Corrie. 61 yr old female who was admitted on 12/14/16 for shortness of breath, nausea and vomiting, weakness. today is po day 1 s/p left thoracotomy with chest tube insertion. is orally intubated to vent tv 450, ac 16, peep 7. fio2 60%. on neosynephrine drip at 140mcg/min. propofol drip at 20 mcg/kg/min. IV fluid D5NS at 100ml/hr via right jugular vein, sanchez catheter intact urine clear meka adequate output. patient awake and nods head to conversation. ekg sinus rhythm, art line via left femoral artery intact zeroed and calibrated to monitor. Addendum: 12/23/16 at 0839 by PARMINDER MANZO RN Amended: Links added.
--- NOTE | 2016-12-23 08:00 | NUR ---
seen by dr osullivan, condition report given. pericardial drain removed by . seen by dr hutton as well. condition report given. Addendum: 12/23/16 at 1104 by PARMINDER MANZO RN Amended: Links added. Addendum: 12/23/16 at 1106 by PARMINDER MANZO RN Amended: Links added.
[2016-12-23] MEDS: TAMOXIFEN CITRATE 10 MG TABLET PO SCH (09:00)
[2016-12-23] MEDS: FAMOTIDINE. 20 MG/2 ML VIAL IV SCH ×2 (09:06→21:04)
--- NOTE | 2016-12-23 09:06 | NUR ---
medicated for headache and generalized discomfort Addendum: 12/23/16 at 1811 by PARMINDER MANZO RN Amended: Melissa added. Addendum: 12/23/16 at 1812 by PARMINDER MANZO RN Amended: Melissa berrios.
[2016-12-23 10:18] LABS: ABG BASE EXCESS 0.4 mmol/L; ABG HCO3 24.7 mmol/L; ABG PCO2 38.8 mmHg (35.0-45.0); ABG PH 7.422 (7.350-7.450); ABG PO2 140.7 mmHg (75.0-100.0); ABG SITE RIGHT FEMORAL; COHb 0.9 % (0.5-1.5); MetHb 0.4 % (0.0-1.5); O2Hb 97.7 % (94.0-97.0); VENT MODE VENT - PSUPPORT; VT, ABG 533 mL
[2016-12-23] MEDS ORDERED: DC PROPOFOL ONCE EXTUBATED XX PRN (11:05)
--- NOTE | 2016-12-23 11:06 | NUR ---
seen by dr adelson. mon reviewed by md. armenta extubate. Addendum: 12/23/16 at 1106 by PARMINDER MANZO RN Amended: Links added.
--- NOTE | 2016-12-23 11:10 | NUR ---
extubated/ placed on 3 l nc. patient fully awake and following commands. o2 saturation maintained. Addendum: 12/23/16 at 1822 by PARMINDER MANZO RN Amended: Links added.
--- NOTE | 2016-12-23 11:27 | NUR ---
RECEIVED PT INTUBATED ON SETTINGS OF AC 16, VT 450, FI02 70% AND PEEP 7. AWAKE AND ALERT WITH NO DISTRESS SATURATING 100%. SUCTIONED FOR MODERATE AMOUNT OF REDDISH SECRETION FROM THE ETT TUBE. AT 0940 WEANING WAS STARTED AND PLACED PT ON PEEP 5 AND TITRATED FIO2 FROM 70 TO 50 AND TO 40%. PT WAS THEN PLACED ON CPAP WITH PSV 10 AND ABG WAS DRAWN AT 1000 WITH RESULT GIVEN TO PARMINDER MANZO RN. PT WAS THEN EXTUBATED UPON ORDERS FROM DR. SALCIDO. PT WAS PLACED ON 3 LPM NC AND SATURATING AT 96-100%. WILL MONITOR PT'S CONDITION.
[2016-12-23] MEDS: ONDANSETRON INJ 8 MG in IV NORMAL SALINE 50 ML IV PRN (12:38)
--- NOTE | 2016-12-23 12:38 | NUR ---
medicated for nausea and vomiting Addendum: 12/23/16 at 1813 by PARMINDER MANZO RN Amended: Melissa added. Addendum: 12/23/16 at 1816 by PARMINDER MANZO RN Amended: Links added. Addendum: 12/23/16 at 1817 by PARMINDER MANZO RN Amended: Links added. Addendum: 12/23/16 at 1819 by PARMINDER MANZO RN Amended: Links added.
[2016-12-23] MEDS ORDERED: METOCLOPRAMIDE HCL 10 MG/2 ML VIAL IV SCH (14:15)
[2016-12-23] MEDS ORDERED: ALBUMIN HUMAN 5% 250 ML IV ONE (14:45)
--- NOTE | 2016-12-23 15:00 | NUR ---
neosynephrine changed to 80mg in 250 d5ww and drip titrated to keep sbp >90. Addendum: 12/23/16 at 1816 by PARMINDER MANZO RN Amended: Links added. Addendum: 12/23/16 at 1817 by PARMINDER MANZO RN Amended: Links added. Addendum: 12/23/16 at 1818 by PARMINDER MANZO RN Amended: Links added.
[2016-12-23] MEDS: PHENYLEPHRINE IV 80 MG in IV DEXTROSE 5% 250 ML IV PRN (15:34)
--- NOTE | 2016-12-23 15:46 | NUR ---
plasmanate 250 ml started at 125ml/hr Addendum: 12/23/16 at 1818 by PARMINDER MANZO RN Amended: Links added. Addendum: 12/23/16 at 1819 by PARMINDER MANZO RN Amended: Links added.
--- NOTE | 2016-12-23 20:00 | NUR ---
Awake, appears with generalized weakness. Glad ETT out, now on nasal cannula 2L/min. Resp easy and regular. Coughing and deep breathing with encouragement. Remains Neosynephrine-dependent, titrating as ordered. [place] left femoral intact, zero referencing and calibration done. Chest tube left pleural site intact and patent, at 20 cm water suction. Routine chest tube care done. Denies pain, aware to call RN if pain arises. Please see CCU flowsheet for trends and clinical data.
[2016-12-23] MEDS: DOCUSATE SODIUM 100 MG CAPSULE PO SCH (21:04)
[2016-12-23] MEDS: ZOLPIDEM 5 MG TABLET PO PRN (21:57)
[2016-12-24] VITALS (77 sets, daily range): BP systolic 66–124; BP diastolic 41–85
[2016-12-24] MEDS: PHENYLEPHRINE IV 80 MG in IV DEXTROSE 5% 250 ML IV PRN ×3 (00:24→20:22)
[2016-12-24] MEDS: MORPHINE SULFATE 4 MG/1 ML DISP.SYRIN IV PRN ×3 (04:22→21:01)
[2016-12-24 05:14] LABS: CREATININE 0.5 mg/dL (0.6-1.3); MAGNESIUM 1.8 mg/dL (1.8-2.4); PHOSPHOROUS 1.6 mg/dL (2.5-4.9); POTASSIUM 3.9 mmol/L (3.5-5.1)
--- NOTE | 2016-12-24 05:20 | NUR ---
Seen and evaluated by Dr. Cunha; placed chest tube to water seal only. Output only 75 ml this shift. MD updated with pt condition. AM care rendered and tolerated well.
[2016-12-24 06:18] LABS: BASOPHILS % (AUTO) 0.3 % (0.0-2.0); EOSINOPHILS # (AUTO) 0.1 K/uL (0.0-0.7); EOSINOPHILS % (AUTO) 0.5 % (0.0-7.0); HEMATOCRIT 32.1 % (31.2-41.9); LYMPHOCYTES # (AUTO) 1.2 K/uL (20.0-40.0); LYMPHOCYTES % (AUTO) 10.9 % (20.5-51.5); MEAN CORPUSCULAR HEMOGLOBIN 31.2 uug (24.7-32.8); MEAN CORPUSCULAR HGB CONC 34 g/dL (32.3-35.6); MEAN CORPUSCULAR VOLUME 91.2 fL (75.5-95.3); MONOCYTES # (AUTO) 1.5 K/uL (2.0-10.0); MONOCYTES % (AUTO) 13.7 % (0.0-11.0); NEUTROPHILS # (AUTO) 8.1 K/uL (1.8-8.9); NEUTROPHILS % (AUTO) 74.6 % (38.5-71.5); PLATELET COUNT (AUTO) 202 K/uL (179-408); RED BLOOD CELL COUNT(AUTO) 3.52 MIL/uL (3.63-4.92); WHITE BLOOD COUNT (AUTO) 10.9 K/uL (3.8-11.8)
[2016-12-24] MEDS: IV D5 1/2 NS 1000 ML 1,000 ML IV PRN ×2 (06:36→16:55)
[2016-12-24] MEDS: FAMOTIDINE. 20 MG/2 ML VIAL IV SCH ×2 (08:43→20:20)
[2016-12-24] MEDS: TAMOXIFEN CITRATE 10 MG TABLET PO SCH (08:44)
[2016-12-24] MEDS: ONDANSETRON INJ 8 MG in IV NORMAL SALINE 50 ML IV PRN (08:52)
[2016-12-24 09:22] LABS: ABG BASE EXCESS 3.3 mmol/L; ABG HCO3 27.9 mmol/L; ABG PCO2 42.5 mmHg (35.0-45.0); ABG PH 7.435 (7.350-7.450); ABG PO2 137.9 mmHg (75.0-100.0); ABG SITE RIGHT FEMORAL; ABG TOTAL HEMOGLOBIN 10.8 G/dL (12.0-16.0); MetHb 0.4 % (0.0-1.5); O2Hb 97.7 % (94.0-97.0); VENT MODE Nasal Cannula
[2016-12-24] MEDS ORDERED: NEUTRA PHOS PACKET PO ONE (10:45)
--- NOTE | 2016-12-24 11:45 | NUR ---
Dr. Bernal in the unit to examine patient; full report given, patient AAOX4. and updated on current condition by
--- NOTE | 2016-12-24 11:58 | NUR ---
Clinicals faxed to Catherine at [facility]. ,
[2016-12-24] MEDS: METOCLOPRAMIDE HCL 10 MG/2 ML VIAL IV PRN (14:02)
--- NOTE | 2016-12-24 19:57 | NUR ---
A/A o times 4 no acute distress noted or voiced.
--- NOTE | 2016-12-24 20:00 | NUR ---
laying quietly no acute distress noted or voiced,watching tv.
[2016-12-24] MEDS: DOCUSATE SODIUM 100 MG CAPSULE PO SCH (20:23)
[2016-12-25] VITALS (86 sets, daily range): BP systolic 79–134; BP diastolic 30–90
[2016-12-25] MEDS: IV D5 1/2 NS 1000 ML 1,000 ML IV PRN (02:36)
[2016-12-25] MEDS: PHENYLEPHRINE IV 80 MG in IV DEXTROSE 5% 250 ML IV PRN ×3 (02:37→20:12)
[2016-12-25] MEDS: ONDANSETRON INJ 8 MG in IV NORMAL SALINE 50 ML IV PRN ×2 (04:25→11:54)
[2016-12-25 05:28] LABS: BASOPHILS % (AUTO) 0.5 % (0.0-2.0); EOSINOPHILS # (AUTO) 0.2 K/uL (0.0-0.7); EOSINOPHILS % (AUTO) 1.6 % (0.0-7.0); HEMATOCRIT 32.5 % (31.2-41.9); HEMOGLOBIN 10.6 g/dL (10.9-14.3); LYMPHOCYTES # (AUTO) 1.2 K/uL (20.0-40.0); LYMPHOCYTES % (AUTO) 10.5 % (20.5-51.5); MEAN CORPUSCULAR HGB CONC 33 g/dL (32.3-35.6); MEAN CORPUSCULAR VOLUME 92.2 fL (75.5-95.3); MONOCYTES # (AUTO) 1.3 K/uL (2.0-10.0); MONOCYTES % (AUTO) 12.1 % (0.0-11.0); NEUTROPHILS # (AUTO) 8.3 K/uL (1.8-8.9); NEUTROPHILS % (AUTO) 75.3 % (38.5-71.5); PLATELET COUNT (AUTO) 219 K/uL (179-408); RED BLOOD CELL COUNT(AUTO) 3.53 MIL/uL (3.63-4.92); WHITE BLOOD COUNT (AUTO) 11.1 K/uL (3.8-11.8)
[2016-12-25 05:47] LABS: CREATININE 0.5 mg/dL (0.6-1.3); MAGNESIUM 1.7 mg/dL (1.8-2.4); PHOSPHOROUS 2.1 mg/dL (2.5-4.9)
--- NOTE | 2016-12-25 06:46 | NUR ---
Dr. jayden Ulloa at bs dcd Chest tube,continues to need pressors
[2016-12-25] MEDS: METOCLOPRAMIDE HCL 10 MG/2 ML VIAL IV PRN (07:22)
[2016-12-25] MEDS ORDERED: MAGNESIUM SULFATE/D5W 100 ML IV SCH (09:30)
[2016-12-25] MEDS ORDERED: NEUTRA PHOS PACKET PO ONE (09:30)
[2016-12-25] MEDS: TAMOXIFEN CITRATE 10 MG TABLET PO SCH (09:40)
[2016-12-25] MEDS: FAMOTIDINE. 20 MG/2 ML VIAL IV SCH ×2 (09:40→20:56)
--- NOTE | 2016-12-25 12:02 | NUR ---
Dr. Ho in to examine patient; full report given, no orders received.
[2016-12-25] MEDS: MORPHINE SULFATE 4 MG/1 ML DISP.SYRIN IV PRN ×2 (14:35→21:13)
--- NOTE | 2016-12-25 18:00 | NUR ---
Dr. Moss in the unit to examine patient, full report given informed of pt's desire to get a medicated to boost her appetite, no orders received.
[2016-12-25] MEDS: DOCUSATE SODIUM 100 MG CAPSULE PO SCH ×2 (20:56→21:00)
[2016-12-26] VITALS (88 sets, daily range): BP systolic 79–132; BP diastolic 37–86
[2016-12-26] MEDS: PHENYLEPHRINE IV 80 MG in IV DEXTROSE 5% 250 ML IV PRN ×2 (04:21→15:16)
[2016-12-26 05:07] LABS: BASOPHILS # (AUTO) 0.1 K/uL (0.0-8.0); BASOPHILS % (AUTO) 0.7 % (0.0-2.0); EOSINOPHILS # (AUTO) 0.1 K/uL (0.0-0.7); EOSINOPHILS % (AUTO) 1.3 % (0.0-7.0); HEMATOCRIT 33.7 % (37-47); HEMOGLOBIN 10.9 G/DL (12.0-16.0); LYMPHOCYTES # (AUTO) 1.1 K/UL (0.8-4.8); LYMPHOCYTES % (AUTO) 10.3 % (20.5-51.5); MEAN CORPUSCULAR HGB CONC 32 g/dL (32.0-37.0); MEAN CORPUSCULAR VOLUME 92.6 FL (81.0-99.0); MONOCYTES % (AUTO) 9.4 % (0.0-11.0); NEUTROPHILS # (AUTO) 8.3 K/UL (1.8-8.9); NEUTROPHILS % (AUTO) 78.3 % (38.5-71.5); PLATELET COUNT (AUTO) 283 K/UL (150-450); RED BLOOD CELL COUNT(AUTO) 3.64 MIL/UL (4.2-5.4); WHITE BLOOD COUNT (AUTO) 10.6 K/UL (4.0-11.2)
[2016-12-26] MEDS: METOCLOPRAMIDE HCL 10 MG/2 ML VIAL IV PRN (05:12)
[2016-12-26 05:15] LABS: CREATININE 0.6 mg/dL (0.6-1.3); MAGNESIUM 1.7 mg/dL (1.8-2.4); PHOSPHOROUS 2.8 mg/dL (2.5-4.9); POTASSIUM 4.4 mmol/L (3.5-5.1)
[2016-12-26] MEDS: FAMOTIDINE. 20 MG/2 ML VIAL IV SCH (08:18)
[2016-12-26] MEDS: DOCUSATE SODIUM 100 MG CAPSULE PO SCH ×2 (08:19→20:21)
[2016-12-26] MEDS: HYDROCODONE/APAP 5-325MG TABLET PO PRN ×3 (08:20→21:34)
[2016-12-26] MEDS: TAMOXIFEN CITRATE 10 MG TABLET PO SCH (08:25)
[2016-12-26 09:33] LABS: ABG HCO3 27.7 mmol/L; ABG PCO2 42.9 mmHg (35.0-45.0); ABG PH 7.428 (7.350-7.450); ABG PO2 101.3 mmHg (75.0-100.0); ABG SITE RIGHT RADIAL; ABG TOTAL HEMOGLOBIN 12.1 G/dL (12.0-16.0); MetHb 0.3 % (0.0-1.5); O2Hb 96.7 % (94.0-97.0); VENT MODE Nasal Cannula
[2016-12-26] MEDS: MAGNESIUM SULFATE/D5W 100 ML IV SCH ×3 (12:11→15:22)
--- NOTE | 2016-12-26 16:28 | NUR ---
gilberto placed on Cpap mode ,noted increased HR while weaning patient , was at the bedside during weaning,aware of ABG result ,unable to tolerate weaning .Patient back to AC mode Addendum: 12/26/16 at 1629 by GOLDY LANGLEY RN Amended: Links added. Addendum: 12/26/16 at 1630 by GOLDY LANGLEY RN Amended: Links added. Addendum: 12/26/16 at 1632 by GOLDY KORIN RN Amended: Links added. Addendum: 12/26/16 at 1632 jacob LANGLEY RN Amended: Links added. Addendum: 12/26/16 at 1635 by GOLDY LANGLEY RN Amended: Links added. Addendum: 12/28/16 at 1853 by GOLDY LANGLEY RN wrong entry ,enter notes meant for patient on room 2
--- NOTE | 2016-12-26 16:32 | NUR ---
gilberto placed on Cpap mode ,noted increased HR while weaning patient , was at the bedside during weaning,aware of ABG result ,unable to tolerate weaning .Patient back to AC mode Addendum: 12/26/16 at 163 by GOLDY LANGLEY RN Amended: Links added. Addendum: 12/26/16 at 163 by GOLDY LANGLEY RN Amended: Links added. Addendum: 12/26/16 at 1635 by GOLDY KORIN RN Amended: Links added. Addendum: 12/28/16 at 1854 by GOLDY LANGLEY RN wrong entry ,noted intended for patient on room 2,bed 5 is on 2LNC
--- NOTE | 2016-12-26 16:35 | NUR ---
gilberto placed on Cpap mode ,noted increased HR while weaning patient , was at the bedside during weaning,aware of ABG result ,unable to tolerate weaning .Patient back to AC mode Addendum: 12/26/16 at 1635 by GOLDY LANGLEY RN Amended: Links added. Addendum: 12/28/16 at 1855 by GOLDY LANGLEY RN patient not intubated,wrong entry ,patient is on 2LNC
[2016-12-26] MEDS: FAMOTIDINE 20 MG TABLET PO SCH (20:22)
[2016-12-26] MEDS: ZOLPIDEM 5 MG TABLET PO PRN (21:34)
[2016-12-27] VITALS (96 sets, daily range): BP systolic 72–130; BP diastolic 40–79
[2016-12-27] MEDS: PHENYLEPHRINE IV 80 MG in IV DEXTROSE 5% 250 ML IV PRN ×3 (00:36→23:30)
[2016-12-27] MEDS: ONDANSETRON INJ 8 MG in IV NORMAL SALINE 50 ML IV PRN ×4 (05:35→21:23)
[2016-12-27 05:39] LABS: BASOPHILS # (AUTO) 0.1 K/uL (0.0-8.0); BASOPHILS % (AUTO) 0.5 % (0.0-2.0); EOSINOPHILS # (AUTO) 0.1 K/uL (0.0-0.7); EOSINOPHILS % (AUTO) 1.3 % (0.0-7.0); HEMATOCRIT 37.3 % (37-47); HEMOGLOBIN 11.9 G/DL (12.0-16.0); LYMPHOCYTES # (AUTO) 0.7 K/UL (0.8-4.8); LYMPHOCYTES % (AUTO) 7.1 % (20.5-51.5); MEAN CORPUSCULAR HEMOGLOBIN 29.7 UUG (27.0-31.0); MEAN CORPUSCULAR HGB CONC 32 g/dL (32.0-37.0); MEAN CORPUSCULAR VOLUME 92.9 FL (81.0-99.0); MONOCYTES # (AUTO) 0.7 K/UL (0.1-1.30); MONOCYTES % (AUTO) 6.9 % (0.0-11.0); NEUTROPHILS # (AUTO) 8.7 K/UL (1.8-8.9); NEUTROPHILS % (AUTO) 84.2 % (38.5-71.5); PLATELET COUNT (AUTO) 279 K/UL (150-450); RED BLOOD CELL COUNT(AUTO) 4.02 MIL/UL (4.2-5.4); WHITE BLOOD COUNT (AUTO) 10.3 K/UL (4.0-11.2)
[2016-12-27] MEDS ORDERED: ONDANSETRON 4 MG/2 ML VIAL ONE (05:45)
[2016-12-27 05:48] LABS: CREATININE 0.6 mg/dL (0.6-1.3); MAGNESIUM 1.8 mg/dL (1.8-2.4); PHOSPHOROUS 3.2 mg/dL (2.5-4.9); POTASSIUM 4.1 mmol/L (3.5-5.1)
[2016-12-27] MEDS: METOCLOPRAMIDE HCL 10 MG/2 ML VIAL IV PRN ×2 (08:22→17:11)
[2016-12-27] MEDS: FAMOTIDINE 20 MG TABLET PO SCH ×2 (08:25→21:19)
[2016-12-27] MEDS: TAMOXIFEN CITRATE 10 MG TABLET PO SCH (08:29)
[2016-12-27] MEDS: HYDROCODONE/APAP 5-325MG TABLET PO PRN ×2 (08:51→18:36)
--- NOTE | 2016-12-27 10:20 | NUR ---
Dr. Bernal pulmonary services in the unit to examine, patient; full report given orders received see orders hx.
--- NOTE | 2016-12-27 16:00 | NUR ---
Dr. Moss int. Medicine in to examine patient; report given. also witness patient removing oxygen and quickly desaturating to the high 80's.
--- NOTE | 2016-12-27 16:05 | NUR ---
Dr. Jo. Faust cardiology services in the unit to examine patient; report given.
[2016-12-27] MEDS ORDERED: Z GUARD REMEDY PASTE 57 GM TUBE TOP PRN (17:15)
[2016-12-27] MEDS: MAGNESIUM SULFATE/D5W 100 ML IV SCH ×2 (20:08→21:18)
[2016-12-27] MEDS: DOCUSATE SODIUM 100 MG CAPSULE PO SCH ×2 (21:19→21:22)
[2016-12-27] MEDS: ZOLPIDEM 5 MG TABLET PO PRN (21:26)
[2016-12-28] VITALS (90 sets, daily range): BP systolic 75–125; BP diastolic 43–75
[2016-12-28] MEDS: METOCLOPRAMIDE HCL 10 MG/2 ML VIAL IV PRN ×3 (01:15→20:58)
[2016-12-28] MEDS: HYDROCODONE/APAP 5-325MG TABLET PO PRN ×3 (01:16→19:52)
[2016-12-28 05:06] LABS: BASOPHILS % (AUTO) 0.4 % (0.0-2.0); EOSINOPHILS # (AUTO) 0.1 K/uL (0.0-0.7); EOSINOPHILS % (AUTO) 1.1 % (0.0-7.0); HEMATOCRIT 30.8 % (37-47); HEMOGLOBIN 10.3 G/DL (12.0-16.0); LYMPHOCYTES # (AUTO) 0.8 K/UL (0.8-4.8); LYMPHOCYTES % (AUTO) 7.8 % (20.5-51.5); MEAN CORPUSCULAR HEMOGLOBIN 30.8 UUG (27.0-31.0); MEAN CORPUSCULAR HGB CONC 33 g/dL (32.0-37.0); MEAN CORPUSCULAR VOLUME 92.4 FL (81.0-99.0); MONOCYTES # (AUTO) 0.9 K/UL (0.1-1.30); MONOCYTES % (AUTO) 8.5 % (0.0-11.0); NEUTROPHILS # (AUTO) 8.9 K/UL (1.8-8.9); NEUTROPHILS % (AUTO) 82.2 % (38.5-71.5); PLATELET COUNT (AUTO) 310 K/UL (150-450); RED BLOOD CELL COUNT(AUTO) 3.33 MIL/UL (4.2-5.4); WHITE BLOOD COUNT (AUTO) 10.7 K/UL (4.0-11.2)
[2016-12-28 05:20] LABS: CREATININE 0.5 mg/dL (0.6-1.3); PHOSPHOROUS 3.3 mg/dL (2.5-4.9); POTASSIUM 4.2 mmol/L (3.5-5.1)
[2016-12-28] MEDS: ONDANSETRON INJ 8 MG in IV NORMAL SALINE 50 ML IV PRN ×2 (06:14→15:45)
--- NOTE | 2016-12-28 06:14 | NUR ---
Two 4 mg vials of Zofran overriden and administered as IVPB by Ayde Rajput RN due to med not supplied by Pharmacy.
[2016-12-28] MEDS ORDERED: ONDANSETRON 4 MG/2 ML VIAL ONE (06:28)
[2016-12-28 07:42] LABS: ABG BASE EXCESS 6.4 mmol/L; ABG HCO3 30.7 mmol/L; ABG PH 7.471 (7.350-7.450); ABG PO2 101.2 mmHg (75.0-100.0); ABG SITE LEFT BRACHIAL; ABG TOTAL HEMOGLOBIN 9.7 G/dL (12.0-16.0); COHb 1.1 % (0.5-1.5); MetHb 0.3 % (0.0-1.5); O2Hb 96.9 % (94.0-97.0); VENT MODE Nasal Cannula
[2016-12-28] MEDS: FAMOTIDINE 20 MG TABLET PO SCH ×2 (08:25→20:59)
[2016-12-28] MEDS: TAMOXIFEN CITRATE 10 MG TABLET PO SCH (08:27)
--- NOTE | 2016-12-28 10:20 | NUR ---
At this time Dr. Moss notified of pt's low urine output. Orders received see order hx.
[2016-12-28] MEDS: MIDODRINE HCL 5 MG TABLET PO SCH ×2 (11:56→20:59)
[2016-12-28] MEDS ORDERED: BUMETANIDE 1 MG/4 ML VIAL IV ONE (12:00)
--- NOTE | 2016-12-28 13:45 | NUR ---
Dr. Faust cardiology services in the unit to examine patient, full report given no orders received.
--- NOTE | 2016-12-28 14:30 | NUR ---
Patient seen by Dr. Bernal; full report given.
[2016-12-28] MEDS: MORPHINE SULFATE 4 MG/1 ML DISP.SYRIN IV PRN ×2 (15:50→17:25)
--- NOTE | 2016-12-28 16:55 | NUR ---
a call to Dr. Moss to notify c/of pain left upper back as stated by patient "stronger that what I've had experienced so far". awaiting call back. Patient AAOX4 no c/of sob, or chest pain.
[2016-12-28] MEDS: LEVOFLOXACIN 500 MG/D5W 500 MG in PREMIXED 1 EACH IV SCH (21:39)
[2016-12-28] MEDS ORDERED: LEVOFLOXACIN 500 MG/D5W 100 ML ONE (21:50)
[2016-12-29] VITALS (61 sets, daily range): BP systolic 75–116; BP diastolic 50–85
[2016-12-29] MEDS: PHENYLEPHRINE IV 80 MG in IV DEXTROSE 5% 250 ML IV PRN (01:56)
[2016-12-29] MEDS: ONDANSETRON INJ 8 MG in IV NORMAL SALINE 50 ML IV PRN ×2 (02:50→10:14)
[2016-12-29] MEDS: HYDROCODONE/APAP 5-325MG TABLET PO PRN ×3 (04:09→20:24)
[2016-12-29] MEDS: METOCLOPRAMIDE HCL 10 MG/2 ML VIAL IV PRN ×2 (07:35→18:34)
[2016-12-29] MEDS: FAMOTIDINE 20 MG TABLET PO SCH ×2 (08:00→20:22)
[2016-12-29] MEDS: MIDODRINE HCL 5 MG TABLET PO SCH ×2 (08:01→20:23)
[2016-12-29] MEDS: TAMOXIFEN CITRATE 10 MG TABLET PO SCH (08:02)
--- NOTE | 2016-12-29 08:45 | NUR ---
Dr. Bernal in the room to examine patient; report given, morning lab orders received, see order Hx.
--- NOTE | 2016-12-29 09:45 | NUR ---
Physical therapy in the room patient tolerated fairly, c/of weakness, vital signs stable during therapy. patient off neosynephrine. heart rate in the mid-120's. No sob, or tachypnea noted.
--- NOTE | 2016-12-29 11:42 | NUR ---
Dr. Moss called to be notified of pt's c/of severe nausea, orders for zofran 4mg IVP stat received.
[2016-12-29] MEDS ORDERED: ONDANSETRON 4 MG/2 ML VIAL IV ONE (12:00)
--- NOTE | 2016-12-29 13:50 | NUR ---
Dr. Ho cardiology services in the unit to examine patient, full report given. Order to monitor blood pressure and Dr. Jones with sbp running at 80 and above, or MAP of 60 and above, as long as patient remains asymptomatic.
[2016-12-29] MEDS: ONDANSETRON 4 MG/2 ML VIAL IV PRN (14:02)
[2016-12-29] MEDS ORDERED: BISACODYL 10 MG SUPP.RECT RC PRN (14:15)
--- NOTE | 2016-12-29 20:00 | NUR ---
Awake, alert. Off Neosynephrine drip since this AM. Monitoring VS closely. Coughing and deep breathing fairly well with good chest/abd splinting with pillow support. Requires encouragement with IS use. Up assisted to bedside commode with minimal assistance. HR and resp. tend to rise with activity. Nursing comfort measures observed at all times. Please see CCU flowsheet for full assessment and clinical data.
[2016-12-29] MEDS: LEVOFLOXACIN 500 MG/D5W 500 MG in PREMIXED 1 EACH IV SCH (20:22)
--- NOTE | 2016-12-29 20:30 | NUR ---
Family came to visit for sometime. Condition update given. Family appreciative of care and information.
[2016-12-29] MEDS: DOCUSATE SODIUM 100 MG CAPSULE PO SCH (20:48)
[2016-12-29] MEDS: Z GUARD REMEDY PASTE 57 GM TUBE TOP PRN (20:50)
[2016-12-29] MEDS: ZOLPIDEM 5 MG TABLET PO PRN (21:01)
[2016-12-30] VITALS (25 sets, daily range): BP systolic 88–110; BP diastolic 56–77
[2016-12-30] MEDS ORDERED: IV NORMAL SALINE 250 ML IV PRN (00:01)
[2016-12-30] MEDS: ONDANSETRON 4 MG/2 ML VIAL IV PRN ×5 (00:46→19:49)
[2016-12-30] MEDS: METOCLOPRAMIDE HCL 10 MG/2 ML VIAL IV PRN (02:29)
--- NOTE | 2016-12-30 02:30 | NUR ---
Had nausea episode at 0045 and was given IV Zofran. [place] better after med and immediately asked for apple juice. Now c/o more nausea, IV Reglan given.
[2016-12-30 05:15] LABS: BASOPHILS # (AUTO) 0.1 K/uL (0.0-8.0); BASOPHILS % (AUTO) 0.6 % (0.0-2.0); EOSINOPHILS % (AUTO) 0.2 % (0.0-7.0); HEMOGLOBIN 10.4 G/DL (12.0-16.0); LYMPHOCYTES # (AUTO) 0.9 K/UL (0.8-4.8); LYMPHOCYTES % (AUTO) 8.1 % (20.5-51.5); MEAN CORPUSCULAR HEMOGLOBIN 30.1 UUG (27.0-31.0); MEAN CORPUSCULAR HGB CONC 32 g/dL (32.0-37.0); MONOCYTES # (AUTO) 0.7 K/UL (0.1-1.30); MONOCYTES % (AUTO) 6.6 % (0.0-11.0); NEUTROPHILS # (AUTO) 9.3 K/UL (1.8-8.9); NEUTROPHILS % (AUTO) 84.5 % (38.5-71.5); PLATELET COUNT (AUTO) 343 K/UL (150-450); RED BLOOD CELL COUNT(AUTO) 3.44 MIL/UL (4.2-5.4)
[2016-12-30 05:22] LABS: BILIRUBIN,TOTAL 0.4 mg/dL (0.2-1.0); CREATININE 0.6 mg/dL (0.6-1.3); MAGNESIUM 1.7 mg/dL (1.8-2.4); PHOSPHOROUS 3.1 mg/dL (2.5-4.9); POTASSIUM 4.1 mmol/L (3.5-5.1)
[2016-12-30] MEDS: Z GUARD REMEDY PASTE 57 GM TUBE TOP PRN (05:23)
--- NOTE | 2016-12-30 05:30 | NUR ---
Another nausea episode at 0445 relieved by IV Zofran. Assisted to bedside commode, appears weak and again RR and HR tends to rise. Appears to bypass sanchez, noted urine on commode and thus sanchez balloon inflated with sterile water with good results.
--- NOTE | 2016-12-30 06:30 | NUR ---
Able to sleep some. BP stable off Neosynephrine. Nursing comfort measures observed at all times. Please see CCU flowsheet for trends and clinical data.
[2016-12-30] MEDS: FAMOTIDINE 20 MG TABLET PO SCH ×2 (08:11→22:11)
[2016-12-30] MEDS: MIDODRINE HCL 5 MG TABLET PO SCH ×2 (08:12→22:11)
[2016-12-30] MEDS: TAMOXIFEN CITRATE 10 MG TABLET PO SCH (08:12)
[2016-12-30] MEDS: MORPHINE SULFATE 4 MG/1 ML DISP.SYRIN IV PRN ×2 (09:22→19:49)
[2016-12-30] MEDS ORDERED: AMIODARONE HCL IV 900 MG in IV DEXTROSE 5% 482 ML IV PRN (09:30)
[2016-12-30] MEDS ORDERED: AMIODARONE HCL IV 150 MG in IV DEXTROSE 5% 100 ML IV ONE (09:30)
--- NOTE | 2016-12-30 09:30 | NUR ---
A call to Dr. Ho cardiology services to notify him of pt's sustained atrial flutter with variable AV block confirmed by stat EKG. informed that rhythm is been sustained since 914 this morning. Orders received, see order hx.
--- NOTE | 2016-12-30 10:10 | NUR ---
A call to Dr. Ramana hoyos to inform of 25cc urine output up to 1000, awaiting call back.
--- NOTE | 2016-12-30 10:44 | NUR ---
Spoke with Dr. Ramana hooys and informed him of low urine output, orders to to bolus patient with 500cc of normal saline received.
[2016-12-30] MEDS ORDERED: IV NORMAL SALINE 500 ML IV ONE (11:00)
--- NOTE | 2016-12-30 12:00 | NUR ---
Dr. Boles notified of urine output post bolus of normal saline.
[2016-12-30] MEDS ORDERED: ALBUMIN HUMAN 25% 100 ML IV ONE (12:30)
--- NOTE | 2016-12-30 13:35 | NUR ---
Dr. Ho cardiology services in the unit to examine patient; report given and orders to start patient on Normal saline at 75cc/hr. received. Orders implemented. Addendum: 12/30/16 at 1429 by FRANCIS ARMSTRONG RN cardiac clearance to down grade patient to ANIL status received if bed needed it.
[2016-12-30] MEDS: MAGNESIUM SULFATE/D5W 100 ML IV SCH ×2 (13:56→14:59)
--- NOTE | 2016-12-30 14:20 | NUR ---
Dr. Ramana hoyos in the unit to examine patient; report given and orders to down-grade patient; to ANIL status received.
[2016-12-30] MEDS: IV NS 1000 ML 1,000 ML IV PRN (14:34)
[2016-12-30] MEDS: BISACODYL 5 MG TABLET.DR PO PRN (16:10)
--- NOTE | 2016-12-30 16:12 | NUR ---
Telephone report given to jovanni Briseno. all questions answered. Patient [id number]. vitals signs stable, no c/o pain or nausea at this time.
--- NOTE | 2016-12-30 16:45 | NUR ---
At this time patient transfer to room 208 as ANIL. vitals stable, iv line patent and assessed with receiving rn at bedside. Patient transferred via wheelchair, able to assist with transfer. Tolerating exertion fairly.
--- NOTE | 2016-12-30 17:00 | NUR ---
received from ccu per w/c as ANIL status, awake alert and oriented, pleasant lady, with 02 at 2l/nc , still with shortness of breath with activity, tele SR @94, left lateral side dsg dry and intact, right IJ iv triple lumen- in place- amiodarone drip at 0.5mg/min, denies of pain at this time, no nausea, call light within reach, female visitor at bedside
[2016-12-30] MEDS: LEVOFLOXACIN 500 MG/D5W 500 MG in PREMIXED 1 EACH IV SCH (19:49)
--- NOTE | 2016-12-30 22:00 | NUR ---
Received patient in room c/o N/V, awake alert & oriented, exertional SOB noted O2 2L/NC in use. Amiodarone drip 0.5mg/min infusing, vital signs are WNL. Sinus rhythm w/ rare PVCs on the monitor. Routine night meds given, Zofran 4mg IVP adm & monitored. Patient verbalized slight relief.
[2016-12-30] MEDS: DOCUSATE SODIUM 100 MG CAPSULE PO SCH (22:10)
[2016-12-30] MEDS: ZOLPIDEM 5 MG TABLET PO PRN (22:11)
[2016-12-31] VITALS: BP 99/68
[2016-12-31 04:00] VITALS: BP 108/74
[2016-12-31] MEDS: ONDANSETRON 4 MG/2 ML VIAL IV PRN ×3 (04:14→13:42)
[2016-12-31] MEDS: IV NS 1000 ML 1,000 ML IV PRN ×2 (04:56→19:43)
[2016-12-31 06:34] LABS: CREATININE 0.5 mg/dL (0.6-1.3); MAGNESIUM 1.9 mg/dL (1.8-2.4); PHOSPHOROUS 2.7 mg/dL (2.5-4.9); POTASSIUM 3.6 mmol/L (3.5-5.1)
[2016-12-31 06:45] LABS: BASOPHILS % (AUTO) 0.1 % (0.0-2.0); EOSINOPHILS % (AUTO) 0.2 % (0.0-7.0); HEMATOCRIT 30.6 % (37-47); HEMOGLOBIN 9.9 G/DL (12.0-16.0); LYMPHOCYTES # (AUTO) 0.4 K/UL (0.8-4.8); LYMPHOCYTES % (AUTO) 4.2 % (20.5-51.5); MEAN CORPUSCULAR HGB CONC 32 g/dL (32.0-37.0); MEAN CORPUSCULAR VOLUME 92.8 FL (81.0-99.0); MONOCYTES # (AUTO) 0.9 K/UL (0.1-1.30); MONOCYTES % (AUTO) 9.3 % (0.0-11.0); NEUTROPHILS # (AUTO) 8.4 K/UL (1.8-8.9); NEUTROPHILS % (AUTO) 86.2 % (38.5-71.5); PLATELET COUNT (AUTO) 311 K/UL (150-450); RED BLOOD CELL COUNT(AUTO) 3.29 MIL/UL (4.2-5.4); WHITE BLOOD COUNT (AUTO) 9.7 K/UL (4.0-11.2)
[2016-12-31] MEDS: METOCLOPRAMIDE HCL 10 MG/2 ML VIAL IV PRN ×2 (06:47→20:08)
[2016-12-31] MEDS: FAMOTIDINE 20 MG TABLET PO SCH ×2 (06:48→20:08)
--- NOTE | 2016-12-31 07:00 | NUR ---
Assisted to bedside commode, patient had small liquid BM today. Tolerated Amiodarone drip 0.5 mg/min. Vital signs WNL. Slightly febrile 99.3 F. Tylenol 650 mg po given, patient didn't tolerate p.o meds, very nauseous & vomited x1. Reglan 10mg IVP adm. Patient requesting high dose of anti nausea. Sinus on the monitor HR 78 bpm. Report given to Sienna WASHBURN
[2016-12-31 07:27] VITALS: BP 116/74
--- NOTE | 2016-12-31 08:30 | NUR ---
awake alert and oriented, tele SR 80's, c/o nausea, medicated with zofran 4mg iv as prn, Amiodarone drip at 0.5mg/min, explained plan of care- verbalized understanding, on 2l/nc, still has slight shortness of breath with activity, call [facility] within reach
[2016-12-31] MEDS: DRONABINOL 2.5 MG CAPSULE PO SCH ×3 (09:25→17:47)
[2016-12-31] MEDS: MIDODRINE HCL 5 MG TABLET PO SCH ×2 (09:26→20:08)
[2016-12-31] MEDS: TAMOXIFEN CITRATE 10 MG TABLET PO SCH (09:28)
--- NOTE | 2016-12-31 10:00 | NUR ---
ambulated in the spring [place] with PT- tolerated well, see PT notes
--- NOTE | 2016-12-31 10:30 | NUR ---
right chest dsg changed-incision with sutures- intact-dry and no redness noted, thoracotomy site covered with Vaseline gauze and ABD dsg- scant drainage noted on dsg
[2016-12-31 11:04] VITALS: BP 94/66
[2016-12-31 15:00] VITALS: BP 103/73
--- NOTE | 2016-12-31 18:00 | NUR ---
seen by Dr Ho with order
--- NOTE | 2016-12-31 18:31 | NUR ---
resting in bed, family at bedside, on 2l/nc tele ST 103, denies of pain, no distress noted, eating better, all needs attended and met, call light within reach
[2016-12-31] MEDS: AMIODARONE HCL 200 MG TABLET PO SCH (18:39)
[2016-12-31 19:57] VITALS: BP 98/67
[2016-12-31] MEDS: DOCUSATE SODIUM 100 MG CAPSULE PO SCH (20:08)
[2016-12-31] MEDS: LEVOFLOXACIN 500 MG TABLET PO SCH (20:08)
--- NOTE | 2016-12-31 21:00 | NUR ---
Received patient nauseated but denies any pain at this time. Reglan IVP adm. Assisted to the bathroom, noted moderate amount soft BM. Tele sinus tach w/ HR 104 bpm.
--- NOTE | 2016-12-31 23:00 | NUR ---
Sponge bath provided, complete bed linen change done. Patient resting comfortably at this time. Tele Sinus rhythm 90s.
[2017-01-01] VITALS (8 sets, daily range): BP systolic 90–107; BP diastolic 50–74
--- NOTE | 2017-01-01 00:34 | NUR ---
Current sanchez output 100ml meka urine. Sanchez care done.
--- NOTE | 2017-01-01 06:43 | NUR ---
Fairly rested, left chest dressing intact. Still c/o pain on the site but patient refused to take pain medication. No acute resp. distress, vital signs WNL. Sinus rhythm on the monitor.
[2017-01-01 07:40] LABS: CREATININE 0.5 mg/dL (0.6-1.3); MAGNESIUM 1.8 mg/dL (1.8-2.4); PHOSPHOROUS 2.4 mg/dL (2.5-4.9); POTASSIUM 3.9 mmol/L (3.5-5.1)
[2017-01-01] MEDS: METOCLOPRAMIDE HCL 10 MG/2 ML VIAL IV PRN (07:47)
--- NOTE | 2017-01-01 08:00 | NUR ---
awake alert and oriented, states feeling better and moving more today, on 3l/nc, tele SR 80's, denies of pain, explained plan of cre- verbalized understanding, call light within reach
[2017-01-01 08:28] LABS: BASOPHILS % (AUTO) 0.2 % (0.0-2.0); EOSINOPHILS % (AUTO) 0.1 % (0.0-7.0); HEMOGLOBIN 9.9 g/dL (10.9-14.3); LYMPHOCYTES # (AUTO) 0.5 K/uL (20.0-40.0); LYMPHOCYTES % (AUTO) 4.1 % (20.5-51.5); MEAN CORPUSCULAR VOLUME 93.7 fL (75.5-95.3); MONOCYTES # (AUTO) 0.8 K/uL (2.0-10.0)
[2017-01-01 08:40] LABS: HEMATOCRIT 30.6 % (31.2-41.9); MEAN CORPUSCULAR HEMOGLOBIN 30.3 uug (24.7-32.8); MEAN CORPUSCULAR HGB CONC 32 g/dL (32.3-35.6); MONOCYTES % (AUTO) 6.7 % (0.0-11.0); NEUTROPHILS # (AUTO) 11.3 K/uL (1.8-8.9); NEUTROPHILS % (AUTO) 88.9 % (38.5-71.5); RED BLOOD CELL COUNT(AUTO) 3.27 MIL/uL (3.63-4.92); WHITE BLOOD COUNT (AUTO) 12.7 K/uL (3.8-11.8)
[2017-01-01 08:41] LABS: PLATELET COUNT (AUTO) 314 K/uL (179-408)
[2017-01-01] MEDS: DRONABINOL 2.5 MG CAPSULE PO SCH ×3 (08:52→17:00)
[2017-01-01] MEDS: FAMOTIDINE 20 MG TABLET PO SCH ×2 (08:53→20:37)
[2017-01-01] MEDS: AMIODARONE HCL 200 MG TABLET PO SCH (08:53)
[2017-01-01] MEDS: MIDODRINE HCL 5 MG TABLET PO SCH ×2 (08:53→20:38)
[2017-01-01] MEDS: TAMOXIFEN CITRATE 10 MG TABLET PO SCH (08:54)
--- NOTE | 2017-01-01 10:00 | NUR ---
ambulated in the spring way with PT tolerated well, up to BR and had a BM soft and brownish/yellowish
--- NOTE | 2017-01-01 11:00 | NUR ---
left chest dsg change done- incision dry and intact- sutures intact, thorcotomy site looks clean and scant amount of brownish dried drainage on dsg noted
--- NOTE | 2017-01-01 12:00 | NUR ---
family at bedside, no nausea at this time, states appetite slightly better
--- NOTE | 2017-01-01 13:00 | NUR ---
seen by Dr Bernal - for US guided thoracentesis of the right lung by radiologist today- pt in agreement, consent signed
--- NOTE | 2017-01-01 15:20 | NUR ---
us guided thoracentesis on the right lung done by Dr Chisholm- obtained 1400 ml of meka yellow pleural fluid- sent to lab, tolerated procedure well, VSS, no bleeding noted on site
[2017-01-01] MEDS ORDERED: NEUTRA PHOS PACKET PO ONE (15:45)
--- NOTE | 2017-01-01 18:16 | NUR ---
resting in bed, sister at bedside, no distress noted, no nausea, all needs attended and met, call light within reach
--- NOTE | 2017-01-01 19:02 | NUR ---
RIVERA CATH REMOVED, SISTER STILL HERE, LEFT RIGHT IJ TILL TOMORROW
[2017-01-01] MEDS: LEVOFLOXACIN 500 MG TABLET PO SCH (20:37)
[2017-01-01] MEDS: DOCUSATE SODIUM 100 MG CAPSULE PO SCH ×2 (20:37→20:41)
[2017-01-01] MEDS: ZOLPIDEM 5 MG TABLET PO PRN (20:43)
--- NOTE | 2017-01-02 08:00 | NUR ---
Awake, alert, oriented x 4 on moderate high back rest. O2 at 2L/NC with O2 sat of 100%, not in distress. Dressing on chest dry and intact.
[2017-01-02] MEDS: AMIODARONE HCL 200 MG TABLET PO SCH (09:00)
[2017-01-02] MEDS: TAMOXIFEN CITRATE 10 MG TABLET PO SCH (09:00)
[2017-01-02] MEDS: MIDODRINE HCL 5 MG TABLET PO SCH (09:00)
[2017-01-02] MEDS: DRONABINOL 2.5 MG CAPSULE PO SCH ×2 (09:00→13:14)
[2017-01-02] MEDS: FAMOTIDINE 20 MG TABLET PO SCH (09:00)
[2017-01-02 09:44] LABS: CREATININE 0.5 mg/dL (0.6-1.3); MAGNESIUM 1.7 mg/dL (1.8-2.4); PHOSPHOROUS 2.9 mg/dL (2.5-4.9); POTASSIUM 3.9 mmol/L (3.5-5.1)
[2017-01-02 11:09] VITALS: BP 99/71
[2017-01-02 11:44] LABS: BASOPHILS % (AUTO) 0.2 % (0.0-2.0); EOSINOPHILS # (AUTO) 0.1 K/uL (0.0-0.7); EOSINOPHILS % (AUTO) 0.8 % (0.0-7.0); HEMATOCRIT 28.5 % (37-47); HEMOGLOBIN 9.5 G/DL (12.0-16.0); LYMPHOCYTES # (AUTO) 0.8 K/UL (0.8-4.8); LYMPHOCYTES % (AUTO) 8.3 % (20.5-51.5); MEAN CORPUSCULAR HGB CONC 33 g/dL (32.0-37.0); MEAN CORPUSCULAR VOLUME 93.2 FL (81.0-99.0); MONOCYTES # (AUTO) 0.7 K/UL (0.1-1.30); MONOCYTES % (AUTO) 6.8 % (0.0-11.0); NEUTROPHILS # (AUTO) 8.1 K/UL (1.8-8.9); NEUTROPHILS % (AUTO) 83.9 % (38.5-71.5); PLATELET COUNT (AUTO) 319 K/UL (150-450); RED BLOOD CELL COUNT(AUTO) 3.06 MIL/UL (4.2-5.4); WHITE BLOOD COUNT (AUTO) 9.7 K/UL (4.0-11.2)
--- NOTE | 2017-01-02 12:00 | NUR ---
O2 decreased to 2L/NC with O2 sat of 97%.
--- NOTE | 2017-01-02 13:37 | NUR ---
O2 decreased to 1L/NC with O2 sat of 97%
[2017-01-02 13:43] LABS: BAND % (MANUAL) 4 % (0-10); BASOPHILS % (MANUAL) 1 % (0-2); EOSINOPHILS % (MANUAL) 2 % (0-8); LYMPHOCYTES % (MANUAL) 9 % (20-40); MONOCYTES % (MANUAL) 11 % (2-10); NEUTROPHILS % (MANUAL) 72 % (42-75)
[2017-01-02] MEDS ORDERED: DRON2.5C3 PO (14:16)
[2017-01-02] MEDS ORDERED: LEVO500T2 PO (14:16)
[2017-01-02] MEDS ORDERED: AMIO200T6 PO (14:16)
[2017-01-02] MEDS ORDERED: MIDO5TAB4 PO (14:16)
[2017-01-02 15:30] VITALS: BP 83/54
[2017-01-02] MEDS ORDERED: MAGNESIUM SULFATE/D5W 100 ML IV SCH (16:45)
--- NOTE | 2017-01-02 17:21 | NUR ---
With discharge order to home with home health arranged with [facility]. Home O2 delivered to room. Triple Lumen Central Line removed from right IJ with line/lumen intact. Dressing applied. Chest dressing, clean and dry. Prescription and DC instruction given to patient verbalized understanding. Went home per wheelchair in fair condition, not in distress, afebrile.
== END 2017-01-02 17:15 | disposition home or self-care (01) | DRG 853 ==
LOC: ER 10:47 → TELE 12:18 → MED 14:53 → CCU 12-15 15:00 → TELE 12-18 14:11 → MED 12-18 20:55 → TELE 12-19 10:25 → CCU 12-22 10:26 → TELE-TD 12-30 16:59 → MED 01-02 09:43
PROVIDERS: ADMIT Nurse Practitioner Acute Care; ATTEND Nurse Practitioner Acute Care
PROC: 0W9D3ZX Drainage of Pericardial Cavity, Percutaneous Approach, Diagnostic (ICD-10-PCS; principal; 2016-12-14)
PROC: 30233N1 Transfusion of Nonautologous Red Blood Cells into Peripheral Vein, Percutaneous Approach (ICD-10-PCS; 2016-12-22)
PROC: 0W3D0ZZ Control Bleeding in Pericardial Cavity, Open Approach (ICD-10-PCS; 2016-12-22)
PROC: 02QL0ZZ Repair Left Ventricle, Open Approach (ICD-10-PCS; 2016-12-22)
PROC: 0W993ZX Drainage of Right Pleural Cavity, Percutaneous Approach, Diagnostic (ICD-10-PCS; 2017-01-01)
DX: A41.9 Sepsis, unspecified organism (principal); E43 Unspecified severe protein-calorie malnutrition; I50.23 Acute on chronic systolic (congestive) heart failure; J91.0 Malignant pleural effusion; C78.00 Secondary malignant neoplasm of unspecified lung; I48.92 Unspecified atrial flutter; R18.8 Other ascites; C78.7 Secondary malignant neoplasm of liver and intrahepatic bile duct; C79.51 Secondary malignant neoplasm of bone; J98.19 Other pulmonary collapse; J98.11 Atelectasis; K56.7 Ileus, unspecified; C50.919 Malignant neoplasm of unspecified site of unspecified female breast; T45.1X5A Adverse effect of antineoplastic and immunosuppressive drugs, initial encounter; Z99.81 Dependence on supplemental oxygen; Z90.12 Acquired absence of left breast and nipple; Z92.3 Personal history of irradiation; D53.9 Nutritional anemia, unspecified; K80.20 Calculus of gallbladder without cholecystitis without obstruction; R62.7 Adult failure to thrive; I70.0 Atherosclerosis of aorta
CPT/HCPCS: 32555; 36415; 36600; 70030-TC; 71010; 71250; 74000; 83605; 83615; 83735; 83986; 84100; 84155; 84443; 85018; 85025; 85730; 86300; 86301; 86850; 86900; 86901; 86920; 87040; 87070; 87075; 87086; 87205; 93005; 93307; 94002; 94003; 97110; 97116; 97530; A4217; A4649; A4663; C1751; J0282; J0330; J0690; J1170; J1644; J1650; J1940; J1956; J2250; J2270; J2370; J2405; J2550; J2765; J3010; J3475; J3490; J7030; J7040; J7042; J7050; J7060; J7120; J8999; P9016-BL; P9021; P9045; P9047; Q0167; Q9967